=== PATIENT | male | born 1935 | race Caucasian/White ===

== ENCOUNTER 2016-04-29 19:07 | Emergency (ER) | payer OTHER, MEDICARE ==
[~2016-04-29] VITALS: Ht 165.1 cm; Wt 74.8 kg
[~2016-04-29 19:07] MED LIST: ASPIR 8181 MG PO; AVODART0.5 MG PO; HUMALOG 75/2100 U/ML; HYZAAR 25 MG-101 TAB PO; LYRICA100 MG PO; LYRICA200 MG PO; LYRICA50 MG PO; METFORMIN HCL500 MG PO; NORVASC 5MG TAB5 MG PO; OYSTER SHELL C500 M1 PO; PENTOXIFYL XR400 MG PO; PROTONIX 40MG T40 MG PO; SIMVASTATIN40 MG PO; TRICOR145 MG PO; VITAMIN B12500 MCG PO; VITAMIN D32000 I1 PO
[2016-04-29 19:23] VITALS: BP 167/75
[2016-04-29] MEDS ORDERED: METFORMIN HCL500 M3 PO (19:55)
[2016-04-29] MEDS ORDERED: SIMVASTATIN40 M1 PO (19:56)
[2016-04-29] MEDS ORDERED: VIMPAT100 M1 PO (19:56)
[2016-04-29] MEDS ORDERED: FINASTERIDE5 M1 PO (19:57)
[2016-04-29] MEDS ORDERED: FENOFIBRATE145 M1 PO (19:57)
[2016-04-29] MEDS ORDERED: CALCIUM 500 +1 EAC5 PO (19:57)
--- NOTE | 2016-04-29 19:57 | RADIOLOGY REPORT ---
EXAMINATION: XR FOOT, RIGHT CLINICAL INFORMATION: Right foot pain following injury. COMPARISON: None TECHNIQUE: AP and lateral views of the right foot. FINDINGS: No acute fractures are identified. There are degenerative or postoperative changes within the hindfoot. There is scattered vascular calcification. IMPRESSION: No evidence for acute injury to the right foot. Degenerative or postoperative changes within the hindfoot.
[2016-04-29] MEDS ORDERED: GABAPENTIN300 M2 PO (19:58)
[2016-04-29] MEDS ORDERED: ASPIRIN EC81 M1 PO (19:59)
[2016-04-29] MEDS ORDERED: FISH OIL 1,0001 EAC3 PO (19:59)
[2016-04-29] MEDS ORDERED: LOSARTAN-HCTZ1 EAC2 PO (19:59)
[2016-04-29] MEDS ORDERED: LEVEMIR FL100 UNIT/1 SC (20:00)
--- NOTE | 2016-04-29 20:00 | ED ANKLE/FOOT INJURY COMPLAINT ---
History of Present Illness General Chief Complaint: Foot or Ankle Injury Stated Complaint: FALL LAST SUNDAY, R FOOT PAIN PER PT Source: patient Exam Limitations: no limitations Vital Signs & Intake/Output Vital Signs & Intake/Output Vital Signs Date Time Temp Pulse Resp B/P Pulse O2 O2 Flow FiO2 Ox Delivery Rate 04/29 1922 97.5 71 18 167/75 98 Room Air Allergies Coded Allergies: NO KNOWN ALLERGIES (04/21/14) Reconcile Medications Aspirin (Ecotrin*) 81 MG TABLET.DR 1 TAB PO DAILY HEART/BLOOD (Reported) Calcium Carbonate/Vitamin D3 (Calcium 500 + D Tablet) 500 MG-400 TABLET 1 TAB PO QAM SUPPLEMENT (Reported) Doxycycline Hyclate 100 MG TABLET 1 TAB PO BID cellulitis Fenofibrate Nanocrystallized (Fenofibrate) 145 MG TABLET 1 TAB PO DAILY CHOLESTEROL/TRIGLYCERIDES (Reported) Finasteride 5 MG TABLET 1 TAB PO QPM PROSTATE (Reported) Gabapentin 300 MG CAPSULE 1 CAP PO QPM UNKNOWN (Reported) Insulin Detemir (Levemir Flextouch) 100 UNIT/ML (3 ML) INSULN.PEN 12 UNITS SC QPM DM (Reported) Lacosamide (Vimpat) 100 MG TABLET 1 TAB PO BID SEIZURES (Reported) Losartan/Hydrochlorothiazide (Losartan-Hctz 100-25 MG Tab) 100 MG-25 MG TABLET 1 TAB PO QPM BP (Reported) Metformin HCl 500 MG TABLET 1 TAB PO BID DM (Reported) [place]-3/Dha/Epa/Fish Oil (Fish Oil 1,000 MG Softgel) 250 MG-500 MG-1,000 MG CAPSULE 1 CAP PO BID SUPPLEMENT (Reported) Simvastatin (Simvastatin*) 40 MG TABLET 1 TAB PO QPM CHOLESTEROL (Reported) Triage Note: PT TO TRIAGE WITH C/O R FOOT PAIN S/P LOST BALLANCE AND FALL A WEEK AGO. DENIES LOC, DENIES HEADSTRIKE. VSS. PT REFUSED PAIN MEDS IN TRIAGE. Triage Nurses Notes Reviewed? yes Occurred: last week Duration: week(s): (1) Timing: recent history Severity: moderate, severe Pain/Injury Location: Right: Foot. No Modifying Factors: none HPI: 80-year-old male comes into emergency room for further evaluation of right foot pain. Patients pain has been going on for the past week. Patient reports that last week he fell and hit it. Denies any injury anywhere else on his body. Patient reports is been some mild redness and an open wound to the right foot. Denies any injury or trauma anywhere else on his body. Denies any other associated symptoms. (LAUREEN BROOKS) Past History Travel History Traveled to [place] past 21 day No Medical History Any Pertinent Medical History? 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 No (LAUREEN BROOKS) Review of Systems Review of Systems Constitutional: Reports: no symptoms. EENTM: Reports: no symptoms. Respiratory: Reports: no symptoms. Cardiovascular: Reports: no symptoms. GI: Reports: no symptoms. Genitourinary: Reports: no symptoms. Musculoskeletal: Reports: see HPI. Skin: Reports: see HPI. Neurological/Psychological: Reports: no symptoms. Hematologic/Endocrine: Reports: no symptoms. Immunologic/Allergic: Reports: no symptoms. All Other Systems: Reviewed and Negative (LAUREEN BROOKS) Physical Exam Physical Exam General Appearance: well developed/nourished, mild distress Head: atraumatic Eyes: Bilateral: normal appearance. Ears, Nose, Throat: normal ENT inspection, hearing grossly normal Neck: normal inspection Cardiovascular/Respiratory: no respiratory distress Back: normal inspection Leg/Knee/Thigh Left: normal range of motion Leg/Knee/Thigh Right: normal range of motion Ankle Right: normal inspection Foot Right: swelling, erythema, small open wound, Neuro/Vascular: normal motor function, normal sensation, dorsalis pedis 2+ Tendon: normal tendon function Psychiatric: awake, alert, oriented x 3 Skin: intact, normal color, warm/dry (LAUREEN BROOKS) Progress Differential Diagnosis: arterial insufficiency, cellulitis, septic arthritis, fracture, dislocation, sprain, contusion, compartmental syndrome Plan of Care: Current Medications Sig/Deangelo Start time Last Medication Dose Stop Time Status Admin Doxycycline Hyclate 100 MG ONCE ONE 04/29 2014 UNVr (Vibramycin) 04/30 2015 Diagnostic Imaging: Viewed by Me: Radiology Read. Discussed w/RAD: Radiology Read. Radiology Impression: SERVICE DATE: 04/29/16 EXAM TYPE: RAD - XRY-FOOT TWO VIEWS RIGHT EXAMINATION: XR FOOT, RIGHT CLINICAL INFORMATION: Right foot pain following injury. COMPARISON: None TECHNIQUE: AP and lateral views of the right foot. FINDINGS: No acute fractures are identified. There are degenerative or postoperative changes within the hindfoot. There is scattered vascular calcification. IMPRESSION: No evidence for acute injury to the right foot. Degenerative or postoperative changes within the hindfoot. DICTATED BY: JERMAN CALDWELL MD DATE/TIME DICTATED:04/29/161950 TRANSPORTATION PLANNER:TRACY DATE/ TIME TRANSCRIBED:04/29/161950 (ASHLEY PERALTA,LAUREEN) Departure Departure Disposition: HOME OR SELF CARE Condition: Stable Clinical Impression Primary Impression: Cellulitis of right foot Referrals: CHRISTIANO SCHMITZ,CONNIE MARTINEZ MD,YVES Riley (PCP/Family) Additional Instructions: Take doxycycline as prescribed. Follow-up with Dr. Schwartz. Return if any concerns worsening symptoms. Follow-up with your primary care physician this week. Return to the emergency room at any time sooner if you have worsening of your symptoms or any other concerns. Please note that there might be incidental findings in your evaluation that are unrelated to the current emergency department visit. Please notify your primary care doctor about this emergency department visit in order to obtain and review all of the testing performed so that these incidental findings can be monitored as needed. If you were prescribed a narcotic use caution as this medication is highly addictive and will make you drowsy use for breakthrough pain only. No driving, drinking alcohol or operating [employer] when taking. If you had an x-ray performed, please understand that some fractures may not be seen on the initial set of x-rays. If your symptoms persist you might need a repeat set of x-rays to check for such a fracture. If you had a laceration evaluated, please understand that foreign bodies such as glass or wood may not be visible to the naked eye or on plain x-rays. If the wound becomes red, swollen, increasingly more painful or if there is any drainage from the wound, please have it reevaluated by a physician for the possibility of a retained foreign body. Departure Forms: Customer Survey General Discharge Information Prescriptions: Current Visit Scripts Doxycycline Hyclate 1 TAB PO BID #20 TAB (LAUREEN BROOKS) PA/HEATING UNIT MECHANIC Co-Sign Statement Statement: ED Attending supervision documentation- [X] I saw and evaluated the patient. I have also reviewed all the pertinent lab results and diagnostic results. I agree with the findings and the plan of care as documented in the PA's/HEATING UNIT MECHANIC's documentation. [] I have reviewed the ED Record and agree with the PA's/HEATING UNIT MECHANIC's documentation. [] Additions or exceptions (if any) to the PAs/HEATING UNIT MECHANIC's note and plan are summarized below: [] (LA VIERA DO)
[2016-04-29] MEDS ORDERED: DOXYCYCLINE HY100 M4 PO (20:03)
[2016-04-30] MEDS ORDERED: DOXYCYCLINE HY100 M2 PO (10:44)
== END 2016-04-29 20:23 ==
LOC: ERH 19:07
DX: L03.115 Cellulitis of right lower limb (principal)
CPT/HCPCS: 73620-RT

== ENCOUNTER 2016-06-05 05:41 | Emergency (ER) | payer OTHER, MEDICARE ==
[~2016-06-05 05:41] MED LIST changes: +ASPIRIN EC81 M1 PO; +CALCIUM 500 +1 EAC5 PO; +DOXYCYCLINE HY100 M2 PO; +DOXYCYCLINE HY100 M4 PO; +FENOFIBRATE145 M1 PO; +FINASTERIDE5 M1 PO; +FISH OIL 1,0001 EAC3 PO; +GABAPENTIN300 M2 PO; +LEVEMIR FL100 UNIT/1 SC; +LOSARTAN-HCTZ1 EAC2 PO; +METFORMIN HCL500 M3 PO; +SIMVASTATIN40 M1 PO; +VIMPAT100 M1 PO
--- NOTE | 2016-06-05 05:43 | ED AMS/SEIZURE/WEAK/DIZZY ---
History of Present Illness General Chief Complaint: Seizure Stated Complaint: BIBA SEIZURE Source: old records, EMS Exam Limitations: clinical condition Vital Signs & Intake/Output Vital Signs & Intake/Output Vital Signs Date Time Temp Pulse Resp B/P B/P Pulse O2 O2 Flow FiO2 Mean Ox Delivery Rate 06/05 1050 96.0 64 20 170/75 95 Room Air 06/05 0916 97.0 67 18 158/75 96 Room Air 06/05 0844 72 20 169/80 96 Room Air 06/05 0718 97.0 78 20 180/80 94 Room Air 06/05 0602 96.5 77 16 165/73 95 Allergies Coded Allergies: NO KNOWN ALLERGIES (04/21/14) Reconcile Medications Aspirin (Ecotrin*) 81 MG TABLET.DR 1 TAB PO DAILY HEART/BLOOD (Reported) Calcium Carbonate/Vitamin D3 (Calcium 500 + D Tablet) 500 MG-400 TABLET 1 TAB PO QAM SUPPLEMENT (Reported) Fenofibrate Nanocrystallized (Fenofibrate) 145 MG TABLET 1 TAB PO DAILY CHOLESTEROL/TRIGLYCERIDES (Reported) Finasteride 5 MG TABLET 1 TAB PO QPM PROSTATE (Reported) Gabapentin 300 MG CAPSULE 1 CAP PO QPM UNKNOWN (Reported) Insulin Detemir (Levemir Flextouch) 100 UNIT/ML (3 ML) INSULN.PEN 12 UNITS SC QPM DM (Reported) Lacosamide (Vimpat) 100 MG TABLET 1 TAB PO BID SEIZURES (Reported) Lacosamide (Vimpat) 100 MG TABLET 1 TAB PO BID seizure disorder Losartan/Hydrochlorothiazide (Losartan-Hctz 100-25 MG Tab) 100 MG-25 MG TABLET 1 TAB PO QPM BP (Reported) Metformin HCl 500 MG TABLET 1 TAB PO BID DM (Reported) [place]-3/Dha/Epa/Fish Oil (Fish Oil 1,000 MG Softgel) 250 MG-500 MG-1,000 MG CAPSULE 1 CAP PO BID SUPPLEMENT (Reported) Simvastatin (Simvastatin*) 40 MG TABLET 1 TAB PO QPM CHOLESTEROL (Reported) Triage Nurses Notes Reviewed? yes Onset: Abrupt Duration: RESOLVING... UNKNOWN TIME OF ONSET Timing: single episode today Injury Environment: home Severity: moderate, severe Modifying Factors: Improves With: rest. Associated Symptoms: GRAND MAL TONIC CLONIC SEIZURES. HPI: 80 yo gentleman h/o seizure disorder, diabetes, presents with sudden onset of grand mal tonic clonic seizures that lasted approximately 8-10 minutes. Per his , "He gets little ones often... but this was a big one and it just wouldn't stop." She denies drug use, alcohol use, fever, chills, headache, chest pain. She notes that, "We tried to get a refill of the Vimpat... The pharmacy didn't have the right number... I called the neurologist and he never called me back.... I woke up and found him seizing.... I called 911." The medics arrived and found him actively seizing, which self resolved. He then became agitated and disoriented. They report no sign of trauma. (GREGORIO PAUL,AGAPITO Aguilera) Past History Travel History Traveled to [place] past 21 day No Medical History Any Pertinent Medical History? 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 No (GREGORIO PAUL,AGAPITO Aguilera) Review of Systems Review of Systems Constitutional: Reports: no symptoms. EENTM: Reports: no symptoms. Respiratory: Reports: no symptoms. Cardiovascular: Reports: no symptoms. GI: Reports: no symptoms. Genitourinary: Reports: no symptoms. Musculoskeletal: Reports: no symptoms. Skin: Reports: no symptoms. Neurological/Psychological: Reports: no symptoms. Hematologic/Endocrine: Reports: no symptoms. Immunologic/Allergic: Reports: no symptoms. All Other Systems: Reviewed and Negative (GREGORIO PAUL,AGAPITO Aguilera) Physical Exam Physical Exam General Appearance: well developed/nourished, mild distress Head: atraumatic, normal appearance Eyes: Bilateral: normal appearance, PERRL, EOMI. Ears, Nose, Throat: normal pharynx, normal ENT inspection, small amount of blood on tongue, no significant laceration visualized. Neck: normal inspection, supple, full range of motion Respiratory: normal breath sounds, chest non-tender, no respiratory distress, quiet respiration, lungs clear Cardiovascular: regular rate/rhythm Gastrointestinal: normal bowel sounds, soft, non-tender, no organomegaly Back: normal inspection Extremities: normal range of motion Neurologic/Psych: no motor/sensory deficits, awake, alert, pt knows name, but not place, date... pt alert, but confused. Reflexes: 1+: bicep (R), bicep (L), knee (R), knee (L). Skin: intact, normal color, warm/dry Core Measures ACS in differential dx? No CVA/TIA Diagnosis: No Severe Sepsis Present: No Septic Shock Present: No (GREGORIO PAUL,AGAPITO Aguilera) Progress Differential Diagnosis: alcohol intoxication, dehydration, electrolyte imbalance , seizure disorder Plan of Care: Orders Procedure Date/time Status Add-on Test (ER Only) 06/05 626 Active URINE DRUG SCREEN FOR ER ONLY 06/05 626 Complete URINALYSIS 06/05 626 Complete ETHANOL 06/05 06 Complete TROPONIN LEVEL 06/05 542 Complete PARTIAL THROMBOPLASTIN TIME 06/05 542 Complete PROTHROMBIN TIME 06/05 05 Complete PROLACTIN 06/05 542 Complete COMPREHENSIVE METABOLIC PANEL 06/05 542 Complete CBC WITHOUT DIFFERENTIAL 06/05 542 Complete EKG 06/05 542 Active Laboratory Tests 06/05/16 1009: Urine Opiates Screen < 100.00, Methadone Screen < 40, Barbiturate Screen < 60, Ur Phencyclidine Scrn < 6.00, Amphetamines Screen < 100, U Benzodiazepines Scrn < 85, Urine Cocaine Screen < 50, Urine Cannabis Screen < 5.00, Urine Color YEL, Urine Clarity CLEAR, Urine pH 6.0, Ur Specific [place] 1.025, Urine Protein 100 H, Urine Ketones NEG, Urine Nitrite NEG, Urine Bilirubin NEG, Urine Urobilinogen 0.2, Ur Leukocyte Esterase NEG, Ur Microscopic SEDIMENT EXAMINED, Urine RBC RARE , Urine WBC RARE, Urine Mucus RARE, Urine Hemoglobin TRACE-INTACT H, Urine Glucose 100 H 06/05/16 0610: Anion Gap 14, Estimated GFR 59 L, BUN/Creatinine Ratio 18.3, Glucose 220 H, Calcium 9.7, Total Bilirubin 0.7, AST 25, ALT 38, Alkaline Phosphatase 45, Troponin I < 0.01, Total Protein 6.5, Albumin 3.8, Globulin 2.7, Albumin/ Globulin Ratio 1.4, Prolactin 61.9 H, PT 12.1, INR 1.15, APTT 29, CBC w Diff NO MAN DIFF REQ, RBC 4.21 L, MCV 82.6, MCH 27.2, RDW 18.5 H, MPV 8.1, Gran % 66.6 , Lymphocytes % 18.7 L, Monocytes % 7.2, Eosinophils % 7.0 H, Basophils % 0.5, Absolute Granulocytes 2.0, Absolute Lymphocytes 0.6 L, Absolute Monocytes 0.2, Absolute Eosinophils 0.2, Absolute Basophils 0, PUBS MCHC 32.9 L, Serum Alcohol < 10.0 Diagnostic Imaging: Viewed by Me: Radiology Read, CT Scan. Discussed w/RAD: Radiology Read, CT Scan. Radiology Impression: head ct... no acute disease. CXR Impression: right basilar region ... atelectasis vs infiltrate. Initial ED EKG: normal axis, normal intervals, normal p-waves, normal QRS complex, normal sinus rhythm, q waves iii, F... no change from prior. Prior EKG: unchanged Hand-Off Endorsed To: LA VIERA DO Endorsed Time: 0700 Pending: other Comments: PATIENT: ELMER RUIZ PRESENT AGE: 80 PATIENT ACCOUNT NO: [id number] : 37 LOCATION: [facility] ORDERING PHYSICIAN: AGAPITO BARKER MD SERVICE DATE: 06/05/16 EXAM TYPE: RAD - XRY-PORTABLE CHEST XRAY EXAMINATION: XR PORTABLE CHEST CLINICAL INFORMATION: Abnormal respiration COMPARISON: 03/29/2016 TECHNIQUE: Portable AP view of the chest was obtained. FINDINGS: The lungs are well expanded. Increased patchy right basilar opacity. The left lung is clear. No pneumothorax. The cardiomediastinal silhouette is unchanged. Radiopaque density overlies the left upper quadrant. IMPRESSION: Increased right basilar opacity could represent atelectasis or pneumonia. DICTATED BY: CHRISTEN MONTANEZ MD DATE/TIME DICTATED:06/05/16608 SMT OPERATOR:TRACY DATE/TIME TRANSCRIBED:06/05/16608 CONFIDENTIAL, DO NOT COPY WITHOUT APPROPRIATE AUTHORIZATION. <Electronically signed in Other Vendor System> SIGNED BY: CHRISTEN MONTANEZ MD 06/05 PATIENT: ELMER RUIZ PRESENT AGE: 80 PATIENT ACCOUNT NO: [id number] : 37 LOCATION: [facility] ORDERING PHYSICIAN: AGAPITO BARKER MD SERVICE DATE: 06/05/16 EXAM TYPE: CAT - CT HEAD WO IV CONTRAST EXAMINATION: CT HEAD WITHOUT CONTRAST CLINICAL INFORMATION: Seizure. Prolonged postictal phase. COMPARISON: 04/21/2014 TECHNIQUE: Contiguous axial imaging was performed from the skull base to vertex without intravenous contrast. DLP: 901 mGy-cm. FINDINGS: There is no evidence of acute intracranial hemorrhage or territorial infarction. No abnormal mass effect or midline shift is seen. Moon to white matter differentiation is well preserved. No extra-axial fluid collections are identified. No hydrocephalus. Proportional prominence of the ventricles and sulcal spaces is consistent with mild volume loss. There is no abnormal attenuation within the brain parenchyma. The osseous structures and soft tissues are normal. The mastoid air cells and visualized portions of the paranasal sinuses are well aerated. IMPRESSION: No acute intracranial pathology. DICTATED BY: CHRISTEN MONTANEZ MD DATE/TIME DICTATED:06/05/16606 SMT OPERATOR:TRACY DATE/TIME TRANSCRIBED:06/05/16606 CONFIDENTIAL, DO NOT COPY WITHOUT APPROPRIATE AUTHORIZATION. <Electronically signed in Other Vendor System> SIGNED BY: CHRISTEN MONTANEZ MD 06/0513 (GREGORIO PAUL,AGAPITO Aguilera) Departure Departure Disposition: STILL A PATIENT Condition: Stable Clinical Impression Primary Impression: Seizure disorder Referrals: MICHELLE PAUL,YVES Riley (PCP/Family) Departure Forms: Customer Survey General Discharge Information Prescriptions: Current Visit Scripts Lacosamide (Vimpat) 1 TAB PO BID #60 TAB Ref 1 Comments 06/05/16, 6:56... discussed with and family member at length... pt resting comfortably after ativan... awaiting lab results. 06/05/16, 7am... pt signed out to dr. viera. (GREGORIO PAUL,AGAPITO Aguilera) Departure Comments 06/05/16 8:13 am The patient was signed out to me by Dr. Barker at 7 AM. He is been sleeping from the Ativan. He does wake up and converse with me. He has a small superficial laceration to the right side of his tongue. He was unable to take a loading dose of Vimpat as he was too sleepy. This has been ordered. Assuming he can ambulate without difficulty he will be discharged. 06/05/16 11 AM The patient is awake alert oriented 3. He was ambulated by nursing. He has no respiratory symptoms. I will empirically treat him with Augmentin. He will take the Vimpat as directed Follow-up with his doctor this week. (LA VIERA DO)
--- NOTE | 2016-06-05 06:13 | CT SCAN REPORT ---
EXAMINATION: CT HEAD WITHOUT CONTRAST CLINICAL INFORMATION: Seizure. Prolonged postictal phase. COMPARISON: 04/21/2014 TECHNIQUE: Contiguous axial imaging was performed from the skull base to vertex without intravenous contrast. DLP: 901 mGy-cm. FINDINGS: There is no evidence of acute intracranial hemorrhage or territorial infarction. No abnormal mass effect or midline shift is seen. Moon to white matter differentiation is well preserved. No extra-axial fluid collections are identified. No hydrocephalus. Proportional prominence of the ventricles and sulcal spaces is consistent with mild volume loss. There is no abnormal attenuation within the brain parenchyma. The osseous structures and soft tissues are normal. The mastoid air cells and visualized portions of the paranasal sinuses are well aerated. IMPRESSION: No acute intracranial pathology.
--- NOTE | 2016-06-05 06:13 | RADIOLOGY REPORT ---
EXAMINATION: XR PORTABLE CHEST CLINICAL INFORMATION: Abnormal respiration COMPARISON: 03/29/2016 TECHNIQUE: Portable AP view of the chest was obtained. FINDINGS: The lungs are well expanded. Increased patchy right basilar opacity. The left lung is clear. No pneumothorax. The cardiomediastinal silhouette is unchanged. Radiopaque density overlies the left upper quadrant. IMPRESSION: Increased right basilar opacity could represent atelectasis or pneumonia.
[2016-06-05 06:25] LABS: ABSOLUTE BASOPHIL COUNT 0 /CUMM (0.0-0.2); ABSOLUTE EOSINOPHIL COUNT 0.2 /CUMM (0.0-0.7); ABSOLUTE LYMPH COUNT 0.6 /CUMM (1.2-3.4); ABSOLUTE MONOCYTE COUNT 0.2 /CUMM (0.10-0.60); BASOPHIL % 0.5 % (0.0-2.0); GRANULOCYTE % 66.6 % (42.2-75.2); HEMATOCRIT 34.8 % (42-52); MEAN CORPUSCULAR HGB 27.2 PG (27.0-31.0); MEAN CORPUSCULAR HGB CONC 32.9 G/DL (33.0-37.0); MEAN CORPUSCULAR VOLUME 82.6 FL (80.0-94.0); MEAN PLATELET VOLUME 8.1 FL (7.4-10.4); PLATELET COUNT 123 /CUMM (130-400); RBC DISTRIBUTION WIDTH 18.5 % (11.5-14.5); RED BLOOD CELL CT 4.21 /CUMM (4.70-6.10)
[2016-06-05 06:32] LABS: PT 12.1 SEC (9.4-12.5); PTT 29 SEC (25-37)
[2016-06-05] MEDS ORDERED: VIMPAT100 M1 PO (06:37)
[2016-06-05 10:50] VITALS: BP 170/75
[2016-06-05] MEDS ORDERED: AUGMENTIN 500-1 EACH PO (11:10)
== END 2016-06-05 11:27 ==
LOC: ERH 05:41
PROVIDERS: Pediatrics
DX: G40.909 Epilepsy, unspecified, not intractable, without status epilepticus (principal); I10 Essential (primary) hypertension; E11.9 Type 2 diabetes mellitus without complications; Z79.84 Long term (current) use of oral hypoglycemic drugs
CPT/HCPCS: 80307; 81001; 93005; 93010; 96374; G0480

== ENCOUNTER 2017-06-13 07:54 | Emergency (ER) | payer OTHER, MEDICARE ==
[~2017-06-13] VITALS: Ht 165.1 cm; Wt 70.3 kg
[~2017-06-13 07:54] MED LIST changes: +AUGMENTIN 500-1 EACH PO
[2017-06-13 08:03] VITALS: BP 143/85
--- NOTE | 2017-06-13 08:09 | ED GENERAL ADULT ---
History of Present Illness General Chief Complaint: General Adult Stated Complaint: PT TOOK WRONG INSULIN THIS MORNING BY ACCIDENT Source: patient, family, old records Exam Limitations: no limitations Vital Signs & Intake/Output Vital Signs & Intake/Output Vital Signs Date Time Temp Pulse Resp B/P B/P Pulse O2 O2 Flow FiO2 Mean Ox Delivery Rate 06/13 0803 97.4 81 18 143/85 98 Room Air Allergies Coded Allergies: NO KNOWN ALLERGIES (04/21/14) Reconcile Medications Aspirin (Ecotrin*) 81 MG TABLET.DR 1 TAB PO DAILY HEART/BLOOD (Reported) Augmentin (Augmentin 500-125 Tablet) 500 MG-125 MG TABLET 1 TAB PO BID ASPIRATION Calcium Carbonate/Vitamin D3 (Calcium 500 + D Tablet) 500 MG-400 TABLET 1 TAB PO QAM SUPPLEMENT (Reported) Fenofibrate Nanocrystallized (Fenofibrate) 145 MG TABLET 1 TAB PO DAILY CHOLESTEROL/TRIGLYCERIDES (Reported) Finasteride 5 MG TABLET 1 TAB PO QPM PROSTATE (Reported) Gabapentin 300 MG CAPSULE 1 CAP PO QPM UNKNOWN (Reported) Insulin Detemir (Levemir Flextouch) 100 UNIT/ML (3 ML) INSULN.PEN 12 UNITS SC QPM DM (Reported) Lacosamide (Vimpat) 100 MG TABLET 1 TAB PO BID SEIZURES (Reported) Lacosamide (Vimpat) 100 MG TABLET 1 TAB PO BID seizure disorder Losartan/Hydrochlorothiazide (Losartan-Hctz 100-25 MG Tab) 100 MG-25 MG TABLET 1 TAB PO QPM BP (Reported) Metformin HCl 500 MG TABLET 1 TAB PO BID DM (Reported) [place]-3/Dha/Epa/Fish Oil (Fish Oil 1,000 MG Softgel) 250 MG-500 MG-1,000 MG CAPSULE 1 CAP PO BID SUPPLEMENT (Reported) Simvastatin (Simvastatin*) 40 MG TABLET 1 TAB PO QPM CHOLESTEROL (Reported) Triage Note: PT FROM HOME C/O "MEDICATED WITH WRONG INSULIN" PER PT. PT STATES THIS MORNING BSG 266, PT THEN MEDICATED WITH 30 UNITS OF HUMALOG INSTEAD OF 6 UNITS. PT WAS SUPPOSE TO TAKE 30 UNITS OF LEVEMIR AND HE MEDICATED WITH 5 UNITS. PTS INTAKE SINCE THEN WAS 1 MALAYSIAN MUFFIN 3-4 MINI CANDIES AND 1 GLASS OF MILK. PTS VSS. Triage Nurses Notes Reviewed? yes Onset: Abrupt Duration: hour(s): Timing: single episode today Injury Environment: home Severity: mild Severity Numbers: 1 No Modifying Factors: none Associated Symptoms: denies HPI: 81-year-old male with history of seizure disorder diabetes hypertension presents to ER after he states he accidentally switched his insulin medications this morning. He took 30 units of his fast acting Humalog instead of his normal 6 sliding scale after eating an [place]i muffin for breakfast and only took 5 units of his Levemir. This is never happened before. The patient had a piece of candy afterwards on arrival his sugars 312. He offers no complaints no dizziness, lightheadedness, lethargy. No chest pain shortness of breath nausea vomiting He took his insulin around 7am (Ricardo Whitman) Past History Travel History Traveled to [place] past 21 day No Medical History Any Pertinent Medical History? 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 No (Ricardo Whitman) Review of Systems Review of Systems Constitutional: Reports: see HPI. Comments Review of systems: See HPI, All other systems negative. Constitutional, no chills no fever, HEENT: no sore throat no congestion Cardiovascular: No chest pain Skin: no rashes, no change in skin Respiratory: No dyspnea no cough gi: no nausea, no vomiting Muscle skeletal: No joint pain, no back pain Neurologic: , no headache Heme/endocrine: No bruising (Ricardo Whitman) Physical Exam Physical Exam General Appearance: well developed/nourished, no apparent distress Comments: Well-developed well-nourished patient in no apparent distress. HEENT: Atraumatic, extraocular motion intact Neck: Supple, FROM Back: FROM Cardiovascular: Regular rate and rhythms Respiratory: No respiratory distress. Patient speaking in full complete sentences Extremities: full range of motion Neuro: awake, alert, and oriented to person, place and time. There were no obvious focal neurologic abnormalities. Skin: Warm & dry;No appreciable rash on exposed skin Psych: Mood affect normal, normal memory normal judgment. Core Measures ACS in differential dx? No CVA/TIA Diagnosis: No Sepsis Present: No Sepsis Focused Exam Completed? No (Ricardo Whitman) Progress Differential Diagnoses I considered the following diagnoses in my evaluation of the patient: [ Hypoglycemia adverse medication reaction Initial ED EKG: none (Ricardo Whitman) Plan of Care: Orders Procedure Date/time Status FingerStick- Glucose 06/13 0805 Active Patient has no complaints at this time case discussed with Dr. Chiang who agrees with plan we will continue to watch the patient monitored him and observe for signs of hypoglycemia change in mental status lethargy patient is declining anything to eat or drink at this time Patient seen and evaluated by Dr. Chiang repeat blood sugar 247 patient resting in no acute distress at this time discussed with the plan of care need for medication safety return precautions were discussed at length I answered all his questions. (Ricardo Whitman) (Mariia PAUL,Serg Nguyen) Departure Departure Disposition: HOME OR SELF CARE Condition: Stable Clinical Impression Primary Impression: Medication administered in error Referrals: Reji Orozco MD (PCP/Family) Additional Instructions: Be careful and ensure you are taking your medication as prescribed. Follow up with your pmd, Begin your evening dose of insulin as directed. Return with any concerns. Departure Forms: Customer Survey General Discharge Information (Ricardo Whitman) PA/ASSISTANT SPA DIRECTOR Co-Sign Statement Statement: ED Attending supervision documentation- [X] I saw and evaluated the patient. I have also reviewed all the pertinent lab results and diagnostic results. I agree with the findings and the plan of care as documented in the PA's/ASSISTANT SPA DIRECTOR's documentation. Patient presents for evaluation of mistakenly switching his Lantus and regular insulin dose this morning. Physical examination reveals a comfortable appearing gentleman with good color and no diaphoresis. [] I have reviewed the ED Record and agree with the PA's/ASSISTANT SPA DIRECTOR's documentation. [] Additions or exceptions (if any) to the PAs/ASSISTANT SPA DIRECTOR's note and plan are summarized below: [] (Mariia PAUL,Serg Nguyen) Critical Care Note Critical Care Note Critical Care Time: non-applicable (Ricardo Whitman)
== END 2017-06-13 08:52 ==
LOC: ERH 07:54
DX: T38.3X1A Poisoning by insulin and oral hypoglycemic [antidiabetic] drugs, accidental (unintentional), initial encounter (principal)

== ENCOUNTER 2017-07-01 13:09 | Inpatient (IN) | payer OTHER, MEDICARE ==
[~2017-07-01] VITALS: Ht 165.1 cm; Wt 72.2 kg
--- NOTE | 2017-07-01 13:48 | ED GI/GU/ABDOMINAL COMPLAINT ---
History of Present Illness General Chief Complaint: Abdominal Pain/Flank Pain Stated Complaint: ABD PAIN, +N Source: patient, family, old records Exam Limitations: no limitations Vital Signs & Intake/Output Vital Signs & Intake/Output Vital Signs Date Time Temp Pulse Resp B/P B/P Pulse O2 O2 Flow FiO2 Mean Ox Delivery Rate 07/01 1757 98.7 77 18 126/71 96 Room Air 07/01 1421 Room Air 07/01 1323 96.9 70 18 170/77 98 Room Air Allergies Coded Allergies: NO KNOWN ALLERGIES (04/21/14) Reconcile Medications Aspirin (Ecotrin*) 81 MG TABLET.DR 1 TAB PO DAILY HEART/BLOOD (Reported) Calcium Carbonate/Vitamin D3 (Calcium 500 + D Tablet) 500 MG-400 TABLET 1 TAB PO QAM SUPPLEMENT (Reported) Fenofibrate Nanocrystallized (Fenofibrate) 145 MG TABLET 1 TAB PO DAILY CHOLESTEROL/TRIGLYCERIDES (Reported) Finasteride 5 MG TABLET 1 TAB PO QPM PROSTATE (Reported) Gabapentin 300 MG CAPSULE 1 CAP PO QPM NERVE PAIN (Reported) Insulin Detemir (Levemir Flextouch) 100 UNIT/ML (3 ML) INSULN.PEN 30 UNITS SC QAM DM (Reported) Insulin Lispro (Humalog Kwikpen U-100) (Unknown Strength) INSULN.PEN (Unknown Dose) SC TIDAC/HS DM (Reported) Lacosamide (Vimpat) 100 MG TABLET 1 TAB PO BID seizure disorder Losartan/Hydrochlorothiazide (Losartan-Hctz 100-25 MG Tab) 100 MG-25 MG TABLET 1 TAB PO QPM BP (Reported) Metformin HCl 500 MG TABLET 1 TAB PO BID DM (Reported) [place]-3/Dha/Epa/Fish Oil (Fish Oil 1,000 MG Softgel) 250 MG-500 MG-1,000 MG CAPSULE 1 CAP PO BID SUPPLEMENT (Reported) Sennosides (Senna) 8.6 MG TABLET 1 TAB PO DAILY GI (Reported) Simvastatin (Simvastatin*) 40 MG TABLET 1 TAB PO QPM CHOLESTEROL (Reported) Triage Note: C/O SUDDEN ONSET OF MID-ABDOMINAL PAIN WITH NAUSEA X 30 MINUTES, OCCURRED AFTER EATING PIZZA AND SAUSAGES. DENIES SOB OR DIZZINESS. EKG DONE. COLOR PALE. Triage Nurses Notes Reviewed? yes HPI: Patient presents with a gradual onset of epigastric abdominal pain. The pain started very shortly after eating some leftover sausage pizza. His states that she had intended to throw it out because they had lost power. Positive nausea and dry heaving. No diarrhea. Patient denies any chest pain or shortness of breath. The pain is squeezing in nature. There are no aggravating or mitigating factors. He rates the pain at 8 out of 10. There is no radiation of the pain. Past History Travel History Traveled to [place] past 21 day No Medical History Any Pertinent Medical History? 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 No Review of Systems Review of Systems Constitutional: Reports: no symptoms. EENTM: Reports: no symptoms. Respiratory: Reports: no symptoms. Cardiovascular: Reports: no symptoms. GI: Reports: see HPI, abdominal pain, nausea. Genitourinary: Reports: no symptoms. Musculoskeletal: Reports: no symptoms. Skin: Reports: no symptoms. Neurological/Psychological: Reports: no symptoms. Hematologic/Endocrine: Reports: no symptoms. Immunologic/Allergic: Reports: no symptoms. All Other Systems: Reviewed and Negative Physical Exam Physical Exam General Appearance: well developed/nourished, alert, awake, anxious, moderate distress Head: atraumatic, normal appearance Eyes: Bilateral: PERRL, EOMI. Ears, Nose, Throat, Mouth: hearing grossly normal, DRY MUCOSA Neck: normal inspection, supple, full range of motion, normal alignment Respiratory: normal breath sounds, chest non-tender, no respiratory distress, lungs clear Cardiovascular: regular rate/rhythm, normal peripheral pulses Gastrointestinal: normal bowel sounds, soft, tenderness, NO GUARDING ORREBOUND Back: normal inspection, normal range of motion Extremities: normal range of motion Neurologic/Psych: no motor/sensory deficits, awake, alert, oriented x 3, normal mood/affect Core Measures ACS in differential dx? No Sepsis Present: No Sepsis Focused Exam Completed? No Progress Differential Diagnosis: AMI, biliary colic, cholecystitis, gastritis, hepatitis, ischemic bowel, inflamm bowel dis, peptic ulcer, PUD/GERD Plan of Care: Orders Procedure Date/time Status Nothing by Mouth 07/[address] in observation 07/01 1806 Active ED Holding Orders 07/01 1806 Active Code Status 07/01 180 Active TROPONIN LEVEL 07/01 1714 Active EKG 07/01 1714 Active Add-on Test (ER Only) 07/01 1348 Active URINALYSIS 07/01 1348 Active TROPONIN LEVEL 07/01 1339 Complete LIPASE 07/01 1339 Complete COMPREHENSIVE METABOLIC PANEL 07/01 1339 Complete CBC WITHOUT DIFFERENTIAL 07/01 1339 Complete ACETONE 07/01 1339 Complete EKG 07/01 1310 Active Current Medications Sig/Deangelo Start time Last Medication Dose Stop Time Status Admin Finasteride 5 MG QPM 07/01 2100 UNVr (Proscar) Gabapentin 300 MG QPM 07/01 2100 UNVr (Neurontin) Lacosamide 100 MG BID 07/01 2100 UNVr (Vimpat) Ampicillin Sodium/ 3,000 MG ONCE ONE 07/01 1745 AC 07/01 Sulbactam Sodium 07/01 181 174 (Unasyn) Sodium Chloride 100 ML (Normal Saline 0.9%) Laboratory Tests 07/01/17 1720: Troponin I Pending 07/01/17 1407: Anion Gap 13, Estimated GFR 42 L, BUN/Creatinine Ratio 23.8, Glucose 93, Calcium 9.7, Total Bilirubin 0.3, AST 29, ALT 29, Alkaline Phosphatase 47, Troponin I < 0.01, Total Protein 6.6, Albumin 4.1, Globulin 2.5, Albumin/ Globulin Ratio 1.6, Lipase 162, CBC w Diff NO MAN DIFF REQ, RBC 4.45 L, MCV 73.8 L, MCH 23.1 L, MCHC 31.3 L, RDW 18.7 H, MPV 9.1, Gran % 74.4, Lymphocytes % 15.6 L, Monocytes % 6.8, Eosinophils % 2.7, Basophils % 0.5, Absolute Granulocytes 3.7, Absolute Lymphocytes 0.8 L, Absolute Monocytes 0.3, Absolute Eosinophils 0.1, Absolute Basophils 0, Acetone Level NEGATIVE Diagnostic Imaging: Viewed by Me: CT Scan. Discussed w/RAD: CT Scan. Radiology Impression: PATIENT: ELMER RUIZ PRESENT AGE: 81 PATIENT ACCOUNT NO: [id number] : 37 LOCATION: [facility] ORDERING PHYSICIAN: Balwinder Armenta MD SERVICE DATE: 07/01/17-2012 EXAM TYPE: CAT - CT ABD & PELVIS W/O IV CONTRAS EXAMINATION: CT ABDOMEN AND PELVIS WITHOUT CONTRAST CLINICAL INFORMATION: Severe epigastric pain COMPARISON: Ultrasound 05/14/2017 TECHNIQUE: Multidetector volumetric imaging was performed from the superior aspect of the liver through the pubic symphysis. Sagittal and coronal reformatted images were obtained on the technologist's workstation. DLP: 382 mGy-cm FINDINGS: LUNG BASES: Bibasilar atelectasis LIVER, GALLBLADDER, AND BILIARY TREE: The liver is normal in size, shape, and attenuation. No focal hepatic lesion or biliary ductal dilatation is present. The gallbladder is distended. There are multiple gallstones layering within the neck of the gallbladder. There is a small amount of pericholecystic fluid. PANCREAS: Relative fatty atrophy of the pancreas. SPLEEN: The spleen measures up to 13 cm in length. ADRENAL GLANDS: Unremarkable. KIDNEYS AND URETERS: The kidneys are normal in size, shape, and attenuation. No hydronephrosis, hydroureter, or calculi seen. No perinephric stranding. BLADDER: Unremarkable. GASTROINTESTINAL TRACT: Stomach is mildly distended with food. There is an air-fluid level within the proximal duodenum. There may be some mild inflammatory changes in the region of the rupali hepatis. No dilated loops of small or large bowel. Moderate stool volume throughout the colon. ABDOMINAL WALL: Small fat-containing left-sided inguinal hernia. LYMPH NODES: Normal. VASCULAR: Mild to moderate atherosclerotic calcific disease involving the abdominal aorta and arterial branches within the abdomen and pelvis. PELVIC VISCERA: Prostate and seminal vesicles appear within normal range. OSSEOUS STRUCTURES: Posterior fusion of the L3 and L4 vertebral bodies. The fusion hardware appears intact. Intervertebral disc spacer in place. The remainder of the visualized thoracic and lumbar spine is within normal range. IMPRESSION: 1. Cholelithiasis with secondary CT findings suggestive of acute cholecystitis. Recommend clinical correlation with symptoms. 2. Top normal spleen. 3. Posterior lower lumbar fusion. DICTATED BY: Ricardo MD,Denia DATE/TIME DICTATED:07/01/171538 DIAL MOUNTER:TRACY DATE/TIME TRANSCRIBED:1538 CONFIDENTIAL, DO NOT COPY WITHOUT APPROPRIATE AUTHORIZATION. < Electronically signed in Other Vendor System> SIGNED BY: Denia Silva MD [id number] Initial ED EKG: NSR, nonspecific ST T wave chg Prior EKG: unchanged Comments: Patient is feeling much better. There is no further abdominal pain. On exam his abdomen is soft with minimal tenderness in the right upper quadrant with normal bowel sounds. There is no rebound or guarding. Case was discussed with Dr. Mello. He will see the patient in the emergency department. Departure Departure Disposition: STILL A PATIENT Condition: Stable Clinical Impression Primary Impression: Cholecystitis Referrals: Ernesto PAUL,Reji Riley (PCP/Family) Departure Forms: Customer Survey General Discharge Information Observation Note Spoke With: Ronnie Mello MD Physician Advisor Notified: REGINA PAUL,BALWINDER Manuel. Place Patient In: Non-ED OBS Care Area Rationale for Observation: My rational for observation is as follows [LAP ANGEL WHEN CARDIOLOGY CLEARS,IV PAIN CONTROL, IV FLUIDS, PAIN CONTROL, IV ABX].
[2017-07-01 14:18] LABS: ABSOLUTE BASOPHIL COUNT 0 /CUMM (0.0-0.2); ABSOLUTE EOSINOPHIL COUNT 0.1 /CUMM (0.0-0.7); ABSOLUTE GRANULOCYTE CT 3.7 /CUMM (1.4-6.5); ABSOLUTE LYMPH COUNT 0.8 /CUMM (1.2-3.4); ABSOLUTE MONOCYTE COUNT 0.3 /CUMM (0.10-0.60); BASOPHIL % 0.5 % (0.0-2.0); EOSINOPHIL % 2.7 % (0-5); GRANULOCYTE % 74.4 % (42.2-75.2); HEMATOCRIT 32.8 % (42-52); MEAN CORPUSCULAR HGB 23.1 PG (27.0-31.0); MEAN CORPUSCULAR HGB CONC 31.3 G/DL (33.0-37.0); MEAN CORPUSCULAR VOLUME 73.8 FL (80.0-94.0); MEAN PLATELET VOLUME 9.1 FL (7.4-10.4); PLATELET COUNT 238 /CUMM (130-400); RBC DISTRIBUTION WIDTH 18.7 % (11.5-14.5); RED BLOOD CELL CT 4.45 /CUMM (4.70-6.10)
--- NOTE | 2017-07-01 15:50 | CT SCAN REPORT ---
EXAMINATION: CT ABDOMEN AND PELVIS WITHOUT CONTRAST CLINICAL INFORMATION: Severe epigastric pain COMPARISON: Ultrasound 05/14/2017 TECHNIQUE: Multidetector volumetric imaging was performed from the superior aspect of the liver through the pubic symphysis. Sagittal and coronal reformatted images were obtained on the technologist's workstation. DLP: 382 mGy-cm FINDINGS: LUNG BASES: Bibasilar atelectasis LIVER, GALLBLADDER, AND BILIARY TREE: The liver is normal in size, shape, and attenuation. No focal hepatic lesion or biliary ductal dilatation is present. The gallbladder is distended. There are multiple gallstones layering within the neck of the gallbladder. There is a small amount of pericholecystic fluid. PANCREAS: Relative fatty atrophy of the pancreas. SPLEEN: The spleen measures up to 13 cm in length. ADRENAL GLANDS: Unremarkable. KIDNEYS AND URETERS: The kidneys are normal in size, shape, and attenuation. No hydronephrosis, hydroureter, or calculi seen. No perinephric stranding. BLADDER: Unremarkable. GASTROINTESTINAL TRACT: Stomach is mildly distended with food. There is an air-fluid level within the proximal duodenum. There may be some mild inflammatory changes in the region of the rupali hepatis. No dilated loops of small or large bowel. Moderate stool volume throughout the colon. ABDOMINAL WALL: Small fat-containing left-sided inguinal hernia. LYMPH NODES: Normal. VASCULAR: Mild to moderate atherosclerotic calcific disease involving the abdominal aorta and arterial branches within the abdomen and pelvis. PELVIC VISCERA: Prostate and seminal vesicles appear within normal range. OSSEOUS STRUCTURES: Posterior fusion of the L3 and L4 vertebral bodies. The fusion hardware appears intact. Intervertebral disc spacer in place. The remainder of the visualized thoracic and lumbar spine is within normal range. IMPRESSION: 1. Cholelithiasis with secondary CT findings suggestive of acute cholecystitis. Recommend clinical correlation with symptoms. 2. Top normal spleen. 3. Posterior lower lumbar fusion.
[2017-07-01] MEDS ORDERED: SENNA8.6 M3 PO (16:38)
[2017-07-01] MEDS ORDERED: HUMALOG KW100 UNIT/1 SC (16:38)
--- NOTE | 2017-07-01 17:46 | History & Physical Pre-Op ---
General Information and HPI MD Statement: I have seen and personally examined ELMER RUIZ and documented this H&P. The patient is a 81 year old M who presented with a patient stated chief complaint of [abdominal pain]. History of Present Illness: Patient is a 81-year-old male who presents to emergency room with acute onset of severe epigastric abdominal pain with radiation to the right upper quadrant. Began after a meal of sausage and pizza. He developed diaphoresis and vomiting. There is severe pain. Coming to the emergency room he was giving a dose of Toradol and antiemetics with marked resolution of his symptoms. There is still right upper quadrant abdominal pain. No prior episodes of pain. 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 He is known to have gallstones which were previously asymptomatic. Allergies/Medications Allergies: Coded Allergies: NO KNOWN ALLERGIES (04/21/14) Home Med list Aspirin (Ecotrin*) 81 MG TABLET.DR 1 TAB PO DAILY HEART/BLOOD (Reported) Calcium Carbonate/Vitamin D3 (Calcium 500 + D Tablet) 500 MG-400 TABLET 1 TAB PO QAM SUPPLEMENT (Reported) Fenofibrate Nanocrystallized (Fenofibrate) 145 MG TABLET 1 TAB PO DAILY CHOLESTEROL/TRIGLYCERIDES (Reported) Finasteride 5 MG TABLET 1 TAB PO QPM PROSTATE (Reported) Gabapentin 300 MG CAPSULE 1 CAP PO QPM NERVE PAIN (Reported) Insulin Detemir (Levemir Flextouch) 100 UNIT/ML (3 ML) INSULN.PEN 30 UNITS SC QAM DM (Reported) Insulin Lispro (Humalog Kwikpen U-100) (Unknown Strength) INSULN.PEN (Unknown Dose) SC TIDAC/HS DM (Reported) Lacosamide (Vimpat) 100 MG TABLET 1 TAB PO BID seizure disorder Losartan/Hydrochlorothiazide (Losartan-Hctz 100-25 MG Tab) 100 MG-25 MG TABLET 1 TAB PO QPM BP (Reported) Metformin HCl 500 MG TABLET 1 TAB PO BID DM (Reported) [place]-3/Dha/Epa/Fish Oil (Fish Oil 1,000 MG Softgel) 250 MG-500 MG-1,000 MG CAPSULE 1 CAP PO BID SUPPLEMENT (Reported) Sennosides (Senna) 8.6 MG TABLET 1 TAB PO DAILY GI (Reported) Simvastatin (Simvastatin*) 40 MG TABLET 1 TAB PO QPM CHOLESTEROL (Reported) Past History Medical History Neurological: seizure EENT: NONE Cardiovascular: CAD, hypertension, PVD Respiratory: NONE Gastrointestinal: NONE Hepatic: 1FATTY LIVER Renal: NONE Musculoskeletal: disk herniation, fracture, CARPAL TUNNEL Psychiatric: NONE Endocrine: diabetes Blood Disorders: NONE 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 Abdominal pain per HPI, nausea and vomiting. No dysuria. Remainder 12 points negative Exam & Diagnostic Data Last 24 Hrs of Vital Signs/I&O Vital Signs Date Time Temp Pulse Resp B/P B/P Pulse O2 O2 Flow FiO2 Mean Ox Delivery Rate 07/01 1421 Room Air 07/01 1323 96.9 70 18 170/77 98 Room Air Intake & Output 07/01 1600 07/01 0800 07/01 0000 Intake Total 1000 Output Total Balance 1000 Intake, IV 1000 Patient 155 lb Weight Weight Reported by Patient Measurement Method Physical Exam: Gen.: He looks well normal habitus younger than his stated age. HEENT: Anicteric PERRL EOMI Chest: Nontender normal laboratory excursion normal respiratory effort heart is regular with no murmurs Abdomen: Soft exquisite tenderness right upper quadrant with involuntary guarding positive Martinez sign no mass no hernia Extremity is no cyanosis clubbing or edema Last 24 Hrs of Labs/[place]: Laboratory Tests 07/01/17 1720: Troponin I Pending 07/01/17 1407: Anion Gap 13, Estimated GFR 42 L, BUN/Creatinine Ratio 23.8, Glucose 93, Calcium 9.7, Total Bilirubin 0.3, AST 29, ALT 29, Alkaline Phosphatase 47, Troponin I < 0.01, Total Protein 6.6, Albumin 4.1, Globulin 2.5, Albumin/ Globulin Ratio 1.6, Lipase 162, CBC w Diff NO MAN DIFF REQ, RBC 4.45 L, MCV 73.8 L, MCH 23.1 L, MCHC 31.3 L, RDW 18.7 H, MPV 9.1, Gran % 74.4, Lymphocytes % 15.6 L, Monocytes % 6.8, Eosinophils % 2.7, Basophils % 0.5, Absolute Granulocytes 3.7, Absolute Lymphocytes 0.8 L, Absolute Monocytes 0.3, Absolute Eosinophils 0.1, Absolute Basophils 0, Acetone Level NEGATIVE Diagnostic Data Other Results Ultrasound from May 2017 was reviewed finding show cholelithiasis without inflammatory changes CT scan of the abdomen pelvis dated today was reviewed. Findings show gallstones and pericholecystic inflammatory changes Assessment/Plan Assessment/Plan: Patient presents with acute cholecystitis as confirmed by CT scan. Given persistence of his pain and exquisite tenderness, recommend admission to hospital for IV antibiotics. Preoperative evaluation by his hernia was made in the morning and plan for laparoscopic cholecystectomy in the afternoon. He and his were informed the risks of the operation including bleeding infection conversion to open as well as postcholecystectomy diarrhea and agrees proceed. As Ranked By This Provider Problem List: 1. Acute cholecystitis Copies To: Ernesto PAUL,Reji Riley
[2017-07-01 21:46] VITALS: BP 176/100
[2017-07-02 01:31] VITALS: BP 132/96
[2017-07-02 06:20] VITALS: BP 146/88
--- NOTE | 2017-07-02 07:53 | PN- General Surgery ---
See Addendum Subjective Subjective: abd pain improved, still lingering in ruq/epigastric. no n/v, no cp/sob. + voids. awaiting surgery Objective Vital Signs and I&Os Vital Signs Date Time Temp Pulse Resp B/P B/P Pulse O2 O2 Flow FiO2 Mean Ox Delivery Rate 07/03 619 98.7 67 18 146/88 96 Room Air 07/02 0131 65 132/96 07/01 2146 98.8 73 18 176/100 95 07/01 2024 98.3 83 20 138/81 97 Room Air 07/01 1757 98.7 77 18 126/71 96 Room Air 07/01 1421 Room Air 07/01 1323 96.9 70 18 170/77 98 Room Air Intake & Output 07/02 0800 07/02 0000 07/01 1600 07/01 0800 07/01 0000 06/30 1600 Intake Total 555 1000 Output Total Balance 555 1000 Intake, IV 75 1000 Intake, Oral 480 Patient 159 lb 155 lb Weight Weight Bed scale Reported by Patient Measurement Method Physical Exam: gen- nad card- s1s2 pulm- no audible wheeze abd- ttp ruq, epigastric area. soft. nd ext- calves soft nt, alps on Results Last 48 Hours of Labs: Laboratory Tests 07/01 07/01 1720 1407 Chemistry Sodium (137 - 145 mmol/L) 145 Potassium (3.5 - 5.1 mmol/L) 4.5 Chloride (98 - 107 mmol/L) 107 Carbon Dioxide (22 - 30 mmol/L) 25 Anion Gap (5 - 16) 13 BUN (9 - 20 mg/dL) 38 H Creatinine (0.7 - 1.2 mg/dL) 1.6 H Estimated GFR (>60 ml/min) 42 L BUN/Creatinine Ratio (7 - 25 %) 23.8 Glucose (65 - 99 mg/dL) 93 Calcium (8.4 - 10.2 mg/dL) 9.7 Total Bilirubin (0.2 - 1.3 mg/dL) 0.3 AST (17 - 59 U/L) 29 ALT (21 - 72 U/L) 29 Alkaline Phosphatase (< 127 U/L) 47 Troponin I (<0.11 ng/ml) < 0.01 < 0.01 Total Protein (6.3 - 8.2 g/dL) 6.6 Albumin (3.5 - 5.0 g/dL) 4.1 Globulin (1.9 - 4.2 gm/dL) 2.5 Albumin/Globulin Ratio (1.1 - 2.2 %) 1.6 Lipase (23 - 300 U/L) 162 Hematology CBC w Diff NO MAN DIFF REQ WBC (4.8 - 10.8 /CUMM) 5.0 RBC (4.70 - 6.10 /CUMM) 4.45 L Hgb (14.0 - 18.0 G/DL) 10.3 L Hct (42 - 52 %) 32.8 L MCV (80.0 - 94.0 FL) 73.8 L MCH (27.0 - 31.0 PG) 23.1 L MCHC (33.0 - 37.0 G/DL) 31.3 L RDW (11.5 - 14.5 %) 18.7 H Plt Count (130 - 400 /CUMM) 238 MPV (7.4 - 10.4 FL) 9.1 Gran % (42.2 - 75.2 %) 74.4 Lymphocytes % (20.5 - 51.1 %) 15.6 L Monocytes % (1.7 - 9.3 %) 6.8 Eosinophils % (0 - 5 %) 2.7 Basophils % (0.0 - 2.0 %) 0.5 Absolute Granulocytes (1.4 - 6.5 /CUMM) 3.7 Absolute Lymphocytes (1.2 - 3.4 /CUMM) 0.8 L Absolute Monocytes (0.10 - 0.60 /CUMM) 0.3 Absolute Eosinophils (0.0 - 0.7 /CUMM) 0.1 Absolute Basophils (0.0 - 0.2 /CUMM) 0 Toxicology Acetone Level (NEGATIVE) NEGATIVE Assessment/Plan Assessment/Plan A- 81M with acute cholecystitis, PMH CAD, DM, HTN,with DAEN on admission- awaiting cards clearance pending surgery. P- await clearance- medical vs cardiac fu labs npo ivf riss, fingersticks, half home levemir home meds prn pain meds oob, ambulate, dvt ppx unasyn to or when cleared will dw attending Core Measures Venous Thromboembolism VTE Risk Factors Acute Medical Illness No Mechanical VTE Prophylaxis d/t N/A MechProphylax Ordered No VTE Pharm Prophylaxis d/t NA PharmProphylax ordered
--- NOTE | 2017-07-02 08:22 | Cons- Medical ---
Liz Moseley 07/02/17 0821: General Information and HPI Consulting Request Date of Consult: 07/02/17 Requested By: Riaz PAUL,Ronnie Manuel Reason for Consult: medical management Source of Information: patient Exam Limitations: no limitations History of Present Illness: This is a 81 YO M w/PMH significant for seizure, HTN (follows with Dr. Orozco), steatohepatitis/early cirrhosis, cholelithiasis, hyperlipidemia, BPH who was admitted to the surgical service for acute cholecystitis. He is awaiting cholecystectomy, medical team was consulted for preoperative evaluation. The patient initially presented to the hospital with the acute onset of severe abdominal pain radiating to right upper quadrant. His pain started after having a fatty meal (sausage pizza). He does not have any prior episode of similar symptoms. Regarding his prior cardiac history, he denies having any history of CAD/TN, or heart failure he follows with Dr. Denton and underwent echocardiogram approximately 3 years ago. He was told that he was "have a blockage" in his heart which is not concerning. He denies having any stents placed. The patient and his was present at bedside are unsure of the detail of these tests also we don't have the records available. He has been diagnosed with a seizure 4 years ago, he is on Vimpat, his last seizure activity was a grand mal seizure 3 months ago because he ran out of his medications. He denies any history of CVA. Regarding diabetes, he is on Levemir 30 units every morning, Humalog sliding scale and metformin 500 twice a day. He states check his blood glucose levels 3 times a day and they are not usually well controlled. He states that that his blood pressure is usually well controlled. At the time of our interview, the patient denies any chest pain, shortness of breath, headache, dizziness, lightheadedness, nausea, vomiting, abdominal pain, urinary symptoms. He denies tobacco, EtOH or illicit drug use. Of note, patient's states that he has been taking an [id number] supplement for liver detox for the past 2 weeks. (She is unsure of the name). Allergies/Medications Allergies: Coded Allergies: NO KNOWN ALLERGIES (04/21/14) Current Medications: Current Medications Sig/Deangelo Start time Last Medication Dose Route Stop Time Status Admin Acetaminophen 650 MG Q6P PRN 07/01 2145 AC 07/02 PO 0814 Ampicillin Sodium/ 3,000 MG Q6 07/01 2359 AC 07/02 Sulbactam Sodium IV 0606 Sodium Chloride 100 ML Ampicillin Sodium/ 0 .STK-MED ONE 07/01 1749 DC Sulbactam Sodium .ROUTE Ampicillin Sodium/ 3,000 MG ONCE ONE 07/01 1745 DC 07/01 Sulbactam Sodium IV 07/01 1814 1746 Sodium Chloride 100 ML Atorvastatin Calcium 20 MG 1700 07/02 1700 DC PO Atorvastatin Calcium 20 MG 1700 07/02 1700 CAN PO Dextrose/Sodium 1,000 ML .[id number] 07/01 214 AC 07/01 Chloride IV 2212 Docusate Sodium 100 MG BID 07/01 2100 DC 07/01 PO 2220 Finasteride 5 MG QPM 07/02 2100 AC PO Finasteride 5 MG QPM 07/01 2100 DC PO Gabapentin 300 MG QPM 07/02 2100 AC PO Gabapentin 300 MG QPM 07/01 2100 DC PO Heparin Sodium 5,000 UNIT Q8 07/01 2200 AC 07/02 (Porcine) SC 0606 Hydrochlorothiazide 25 MG DAILY 07/02 0900 AC 07/02 PO 0806 Insulin Detemir 15 UNITS DAILY 07/02 0900 AC 07/02 SC 0806 Insulin Human Regular 0 Q6 07/01 2359 AC 07/02 SC 0606 Ketorolac 0 .STK-MED ONE 07/01 1419 DC Tromethamine .ROUTE Ketorolac 15 MG ONCE ONE 07/01 1400 DC 07/01 Tromethamine IV 07/01 1401 1418 Lacosamide 100 MG BID 07/02 0900 AC 07/02 PO 0806 Lacosamide 100 MG ONCE ONE 07/01 2230 DC 07/01 PO 07/01 223 2229 Lacosamide 100 MG BID 07/01 2100 DC PO Losartan Potassium 100 MG DAILY 07/02 0900 DC PO Losartan Potassium 100 MG DAILY 07/02 0900 AC 07/02 PO 0806 Metformin HCl 500 MG 0800,0 07/02 0800 DC PO Metformin HCl 500 MG 0800,0 07/02 0800 CAN PO Metformin HCl 500 MG 0800,1700 07/01 2012 DC PO Morphine Sulfate 2 MG Q2P PRN 07/01 214 AC IV Morphine Sulfate 0 .STK-MED ONE 07/01 1855 DC .ROUTE Morphine Sulfate 4 MG ONCE ONE 07/01 1845 DC 07/01 IV 07/01 1846 1851 Ondansetron HCl 4 MG Q6P PRN 07/01 214 AC IV Ondansetron HCl 0 .STK-MED ONE 07/01 1419 DC .ROUTE Ondansetron HCl 4 MG ONCE ONE 07/01 1400 DC 07/01 IV 07/01 1401 1418 Oxycodone/ 1 TAB Q4P PRN 07/01 2144 AC Acetaminophen PO Oxycodone/ 2 TAB Q4P PRN 07/01 2145 AC 07/02 Acetaminophen PO 0001 Sodium Chloride 1,000 ML BOLUS ONE 07/01 1400 DC 07/01 IV 07/01 1459 1417 Review of Systems Review of Systems Constitutional: Reports: no symptoms. EENTM: Reports: no symptoms. Cardiovascular: Reports: no symptoms. Denies: chest pain, edema, orthopena, palpitations, peripheral edema, syncope. Respiratory: Reports: no symptoms. GI: Reports: see HPI. Genitourinary: Reports: no symptoms. Musculoskeletal: Reports: back pain, joint pain. Skin: Reports: no symptoms. Neurological/Psychological: Reports: other (seizure). Hematologic/Endocrine: Reports: no symptoms. Immunologic/Allergic: Reports: no symptoms. Past History Travel History Traveled to [place] past 21 day No Medical History Blood Transfusion Hx: Yes Neurological: seizure EENT: NONE Cardiovascular: CAD, hypertension, PVD Respiratory: NONE Gastrointestinal: NONE Hepatic: 1FATTY LIVER Renal: NONE Musculoskeletal: disk herniation, fracture, CARPAL TUNNEL Psychiatric: NONE Endocrine: diabetes Blood Disorders: NONE Cancer(s): NONE PULLER MACHINE/Reproductive: NONE Surgical History Surgical History: laminectomy, knee carpal tunnel release, right Psychosocial History Where Do You Live? Home Services at Home: None Smoking Status: Former Smoker ETOH Use: denies use Illicit Drug Use: denies illicit drug use Exam & Diagnostic Data Last 24 Hrs of Vital Signs/I&O Vital Signs Date Time Temp Pulse Resp B/P B/P Pulse O2 O2 Flow FiO2 Mean Ox Delivery Rate 07/02 0806 62 154/70 07/03 619 98.7 67 18 146/88 96 Room Air 07/02 0131 65 132/96 07/01 2145 98.8 73 18 176/100 95 07/02 2023 98.3 83 20 138/81 97 Room Air 07/01 1757 98.7 77 18 126/71 96 Room Air 07/01 1421 Room Air 07/01 1323 96.9 70 18 170/77 98 Room Air Intake & Output 07/02 1600 07/02 0800 07/02 0000 Intake Total 600 555 Output Total Balance 600 555 Intake, IV 600 75 Intake, Oral 0 480 Patient 159 lb Weight Weight Bed scale Measurement Method Physical Exam General Appearance: no apparent distress, alert, awake, comfortable Head: atraumatic, normal appearance Eyes: Bilateral: normal appearance, PERRL, EOMI. Ears, Nose, Throat: normal pharynx, normal ENT inspection, hearing grossly normal Neck: normal inspection, supple Respiratory: normal breath sounds, chest non-tender, no respiratory distress Cardiovascular: regular rate/rhythm, no murmur Gastrointestinal: soft, epigastric abdominal tenderness, no rebound Back: normal inspection Extremities: normal inspection, no edema, pulses wnl and symmetrical Neurologic/Psych: no motor/sensory deficits, awake, alert, oriented x 3, manager business information II- XII nml as tested Cranial Nerves: normal hearing, normal speech, PERRL, see neuro exam Skin: jaundice Last 24 Hrs of Labs/[place]: Laboratory Tests 07/02/17 0722: Anion Gap 12, Estimated GFR 39 L, BUN/Creatinine Ratio 22.9, CBC w Diff NO MAN DIFF REQ, RBC 3.61 L, MCV 73.5 L, MCH 23.3 L, MCHC 31.7 L, RDW 18.9 H, MPV 9.5, Gran % 56.1, Lymphocytes % 26.7, Monocytes % 10.0 H, Eosinophils % 6.4 H, Basophils % 0.8, Absolute Granulocytes 1.1 L, Absolute Lymphocytes 0.5 L, Absolute Monocytes 0.2, Absolute Eosinophils 0.1, Absolute Basophils 0 07/01/17 1720: Troponin I < 0.01 07/01/17 1407: Anion Gap 13, Estimated GFR 42 L, BUN/Creatinine Ratio 23.8, Glucose 93, Calcium 9.7, Total Bilirubin 0.3, AST 29, ALT 29, Alkaline Phosphatase 47, Troponin I < 0.01, Total Protein 6.6, Albumin 4.1, Globulin 2.5, Albumin/ Globulin Ratio 1.6, Lipase 162, CBC w Diff NO MAN DIFF REQ, RBC 4.45 L, MCV 73.8 L, MCH 23.1 L, MCHC 31.3 L, RDW 18.7 H, MPV 9.1, Gran % 74.4, Lymphocytes % 15.6 L, Monocytes % 6.8, Eosinophils % 2.7, Basophils % 0.5, Absolute Granulocytes 3.7, Absolute Lymphocytes 0.8 L, Absolute Monocytes 0.3, Absolute Eosinophils 0.1, Absolute Basophils 0, Acetone Level NEGATIVE Diagnostic Data EKG Results 07/01/2017, 13:14, sinus rhythm, rate 66, QTC 415, no ST-T wave abnormalities 07/01/2017, 17:28, sinus rhythm, 77, QTC 417, no ST-T wave abnormalities CXR Results Not done Other Results CT ABD & PELVIS W/O IV CONTRAS 07/01/17-1513 1. Cholelithiasis with secondary CT findings suggestive of acute cholecystitis. Recommend clinical correlation with symptoms. 2. Top normal spleen. 3. Posterior lower lumbar fusion. Echocardiogram, 04/21/2014 CONCLUSIONS Normal size left ventricle. Mild to moderate concentric left ventricular hypertrophy. Normal left ventricular ejection fraction visually estimated at >70 %. "pseudonormal" filling pattern of the left ventricle for age (stage 2 diastolic dysfunction). Normal right ventricular size and function. Normal atrial size. Mild mitral regurgitation. No hemodynamically significant aortic stenosis. Mild aortic regurgitation. Mild tricuspid regurgitation. Right ventricular systolic pressure estimated at 36 mmHg. No pulmonic regurgitation. Mildly dilated proximal ascending aorta (tube). Dilated IV Procedure Date: 06/21/15 Procedure Type: EGD w/biopsy Product Sales Engineer: AGUILAR ALLRED MD ASA Classification: II Indications: 1. GERD 2. Advanced hepatic fibrosis, rule out evidence of portal hypertension 3. Follow-up lesion of the cardia with intestinal metaplasia Instrument: diagnostic gastroscope Meds Received: MAC Patient's Tolerance: good Complications: none Extent Reached: second part of duodenum Procedure: The patient signed informed consent, and was medicated. Lidocaine pharyngeal spray was administered. Pulse oximetry, blood pressure and cardiac monitoring were performed continuously throughout the procedure. The Olympus high- definition gastroscope was inserted into the mouth and advanced to the duodenum. Retroflexion was performed within the stomach to examine the cardia. Careful examination was performed. Findings: The esophagus had normal caliber and contour. The mucosa was intact throughout without erosion, ulceration, nodularity or erythema. There were no varices. The GE junction/squamocolumnar junction at 37 cm was normal, without evidence of metaplasia. There was a small hiatal hernia. The stomach had normal distention and active antral peristalsis. In the cardia on the greater curvature was a previously identified raised/flat lesion, of approximately 8 mm. Multiple biopsies were obtained. There were no varices, nor evidence of portal hypertensive gastropathy. The mucosa and rugae in the fundus and body were otherwise normal. The incisura was normal. Within the antrum were several raised areas of erythema, 2 of which which had whitecaps. These were biopsied. The antral mucosa was otherwise normal. The pyloric channel was normal. The duodenal bulb was normal without erosion, ulceration or deformity. Mucosa and folds of the duodenal sweep were normal. Impression: No varices/portal hypertensive gastropathy No esophagitis Lesion of cardia, without change Foci of raised erythema in antrum Recommendations: Await pathology Pending above, consideration for EUS/EMR Continue PPI Assessment/Plan Assessment/Plan This is a 81 YO M w/PMH significant for seizure, HTN, steatohepatitis/early cirrhosis, cholelithiasis, hyperlipidemia, BPH who was admitted to the surgical service for acute cholecystitis. Spoke with [facility], Dr. Márquez; apparently patient had an abnormal stress test(ischemia in the apical region) in 2015. Per available prior records, noticed patient echocardiogram in 2014 reveals stage 2 diastolic dysfunction. Problem list: #Acute cholecystitis #Leukopenia(WBC 1.9, reviewing the chart reveals levels 2.8, 3 in 2014 and 2016. Patient and were not aware of problem and have never done any workup regarding this #Anemia #Diabetes #Hypertension, hyperlipidemia, BPH #Seizure #Elevated creatinine;close to baseline #Remote thrombocytopenia (123 in May 2016, 68 in June 2012) Recommendations: Calculating RCR I, The patient is not undergoing a high risk surgery, he does have a history of ischemic heart disease (ischemia revealed in stress test in 2016 as per cardiology), also he has history of congestive heart failure (stage II diastolic dysfunction as per echo in 2014), he is diabetic on insulin therapy , no history of CVA, creatinine below 2(1.7). Based on the above, His RCRI score is 3, has 11% risk of major cardiac event (mildmoderate). -C/w unasyn at this point and monitor WBC closely -May benefit from hematology consult as an outpatiet -Obtain blood cultures -Repeat CBC tomorrow -He would benefit from cardiology evaluation before his surgery. -Would hold metformin, and hydrochlorothiazide preop. -Decision about aspirin based on cardiology and surgery evaluation. -C/w with other medications including Vimpat, insulin, lisinopril. -DVT prophylaxis at all times. -Consider GI prophylaxis. The case was discussed with attending Dr. Miller, please refer to his addendum for further recommendations. Problem List: 1. Acute cholecystitis Copies To: Riaz PAUL,Ronnie Manuel Consult Acknowledgment - Thank you for your consult request. Nai Miller 07/02/17 6472: General Information and HPI Allergies/Medications Home Med List: Aspirin (Ecotrin*) 81 MG TABLET.DR 1 TAB PO DAILY HEART/BLOOD (Reported) Calcium Carbonate/Vitamin D3 (Calcium 500 + D Tablet) 500 MG-400 TABLET 1 TAB PO QAM SUPPLEMENT (Reported) Fenofibrate Nanocrystallized (Fenofibrate) 145 MG TABLET 1 TAB PO DAILY CHOLESTEROL/TRIGLYCERIDES (Reported) Finasteride 5 MG TABLET 1 TAB PO QPM PROSTATE (Reported) Gabapentin 300 MG CAPSULE 1 CAP PO QPM NERVE PAIN (Reported) Insulin Detemir (Levemir Flextouch) 100 UNIT/ML (3 ML) INSULN.PEN 30 UNITS SC QAM DM (Reported) Insulin Lispro (Humalog Kwikpen U-100) (Unknown Strength) INSULN.PEN (Unknown Dose) SC TIDAC/HS DM (Reported) Lacosamide (Vimpat) 100 MG TABLET 1 TAB PO BID seizure disorder Losartan/Hydrochlorothiazide (Losartan-Hctz 100-25 MG Tab) 100 MG-25 MG TABLET 1 TAB PO QPM BP (Reported) Metformin HCl 500 MG TABLET 1 TAB PO BID DM (Reported) [place]-3/Dha/Epa/Fish Oil (Fish Oil 1,000 MG Softgel) 250 MG-500 MG-1,000 MG CAPSULE 1 CAP PO BID SUPPLEMENT (Reported) Oxycodone HCl/Acetaminophen (Percocet 5-325 MG Tablet) 5 MG-325 MG TABLET 1-2 TAB PO Q4-6 PRN PAIN Sennosides (Senna) 8.6 MG TABLET 1 TAB PO DAILY GI (Reported) Simvastatin (Simvastatin*) 40 MG TABLET 1 TAB PO QPM CHOLESTEROL (Reported) Assessment/Plan Consult Acknowledgment - Thank you for your consult request. Attending MD Review Statement Attending Statement Attending MD Statement: examined this patient, discuss w/resident/PA/CONTROL OPERATOR FLOW COAT, agreed w/resident/PA/CONTROL OPERATOR FLOW COAT, reviewed EMR data (avail) Attending Assessment/Plan: 81 yr old male with pmh of dm on insulin, htn, hld, seizure disorder on vimpat, admitted with abdominal pain secondary to acute choleycystitis. d/w with cardiology the perioperative risk given his h/o DM,HTN,CKD, HLD and ? ischemia on previous stress test. Pt would be a mild- to- moderate risk for perioperative cardiac event for a low risk surgery . Pt was made aware of the risk. We have held his hctz and metformin prior to surgery. Pt does not need any furhter cardiac workup prior to the surgery. Cont to monitor closely post surgery. Leukopenia with neutropenia- pt does have prior episodes of luekopenia. Will monitor cbc closely for white count, hb and platelets. Pt will benefit from outpt follow up with hematology and if leukopenia is persistent will get them to see him while inpatinet. dw/ pt the care plan.
[2017-07-02 08:48] LABS: ABSOLUTE BASOPHIL COUNT 0 /CUMM (0.0-0.2); ABSOLUTE EOSINOPHIL COUNT 0.1 /CUMM (0.0-0.7); ABSOLUTE GRANULOCYTE CT 1.1 /CUMM (1.4-6.5); ABSOLUTE LYMPH COUNT 0.5 /CUMM (1.2-3.4); ABSOLUTE MONOCYTE COUNT 0.2 /CUMM (0.10-0.60); BASOPHIL % 0.8 % (0.0-2.0); EOSINOPHIL % 6.4 % (0-5); GRANULOCYTE % 56.1 % (42.2-75.2); MEAN CORPUSCULAR HGB 23.3 PG (27.0-31.0); MEAN CORPUSCULAR HGB CONC 31.7 G/DL (33.0-37.0); MEAN CORPUSCULAR VOLUME 73.5 FL (80.0-94.0); MEAN PLATELET VOLUME 9.5 FL (7.4-10.4); PLATELET COUNT 147 /CUMM (130-400); RBC DISTRIBUTION WIDTH 18.9 % (11.5-14.5); RED BLOOD CELL CT 3.61 /CUMM (4.70-6.10)
[2017-07-02 09:20] LABS: HEMATOCRIT 26.5 % (42-52); WHITE BLOOD CELL COUNT 1.9 /CUMM (4.8-10.8)
--- NOTE | 2017-07-02 11:53 | Cons- Cardiology ---
General Information and HPI Consulting Request Date of Consult: 07/02/17 Requested By: Riaz PAUL,Ronnie Manuel Reason for Consult: Preoperative cardiac risk assessment Source of Information: patient, family, old records History of Present Illness: This is a pleasant 81-year-old male with a past medical history of mild aortic dilatation, abnormal nuclear stress test managed medically, renal insufficiency, diabetes, hypertension, and hyperlipidemia who presented to [facility] with a chief complaint of moderate intensity right upper quadrant abdominal pain following a meal. He denied associated chest pain, dyspnea, or palpitations. At baseline he has good exertional tolerance greater than 4 METS. He has a history of a mildly abnormal nuclear stress test which was quite well. He denies any prior myocardial infarction or intra-coronary intervention. His abdominal pain is improving. He denies any headache, slurring of speech, focal weakness, visual changes, or recent seizure activity. No associated orthopnea/paroxysmal nocturnal dyspnea. Allergies/Medications Allergies: Coded Allergies: NO KNOWN ALLERGIES (04/21/14) Home Med List: Aspirin (Ecotrin*) 81 MG TABLET.DR 1 TAB PO DAILY HEART/BLOOD (Reported) Calcium Carbonate/Vitamin D3 (Calcium 500 + D Tablet) 500 MG-400 TABLET 1 TAB PO QAM SUPPLEMENT (Reported) Fenofibrate Nanocrystallized (Fenofibrate) 145 MG TABLET 1 TAB PO DAILY CHOLESTEROL/TRIGLYCERIDES (Reported) Finasteride 5 MG TABLET 1 TAB PO QPM PROSTATE (Reported) Gabapentin 300 MG CAPSULE 1 CAP PO QPM NERVE PAIN (Reported) Insulin Detemir (Levemir Flextouch) 100 UNIT/ML (3 ML) INSULN.PEN 30 UNITS SC QAM DM (Reported) Insulin Lispro (Humalog Kwikpen U-100) (Unknown Strength) INSULN.PEN (Unknown Dose) SC TIDAC/HS DM (Reported) Lacosamide (Vimpat) 100 MG TABLET 1 TAB PO BID seizure disorder Losartan/Hydrochlorothiazide (Losartan-Hctz 100-25 MG Tab) 100 MG-25 MG TABLET 1 TAB PO QPM BP (Reported) Metformin HCl 500 MG TABLET 1 TAB PO BID DM (Reported) [place]-3/Dha/Epa/Fish Oil (Fish Oil 1,000 MG Softgel) 250 MG-500 MG-1,000 MG CAPSULE 1 CAP PO BID SUPPLEMENT (Reported) Sennosides (Senna) 8.6 MG TABLET 1 TAB PO DAILY GI (Reported) Simvastatin (Simvastatin*) 40 MG TABLET 1 TAB PO QPM CHOLESTEROL (Reported) Current Medications: Current Medications Sig/Deangelo Start time Last Medication Dose Route Stop Time Status Admin Acetaminophen 650 MG Q6P PRN 07/01 2145 AC 07/02 PO 0814 Ampicillin Sodium/ 3,000 MG Q6 07/01 2359 AC 07/02 Sulbactam Sodium IV 0606 Sodium Chloride 100 ML Ampicillin Sodium/ 0 .STK-MED ONE 07/01 1749 DC Sulbactam Sodium .ROUTE Ampicillin Sodium/ 3,000 MG ONCE ONE 07/01 1745 DC 07/01 Sulbactam Sodium IV 07/01 1814 1746 Sodium Chloride 100 ML Atorvastatin Calcium 20 MG 1700 07/02 1700 DC PO Atorvastatin Calcium 20 MG 1700 07/02 1700 CAN PO Dextrose/Sodium 1,000 ML .[id number] 07/01 2145 AC 07/01 Chloride IV 2212 Docusate Sodium 100 MG BID 07/01 2100 DC 07/01 PO 2220 Finasteride 5 MG QPM 07/02 2100 AC PO Finasteride 5 MG QPM 07/01 2100 DC PO Gabapentin 300 MG QPM 07/02 2100 AC PO Gabapentin 300 MG QPM 07/01 2100 DC PO Heparin Sodium 5,000 UNIT Q8 07/01 2200 AC 07/02 (Porcine) SC 0606 Hydrochlorothiazide 25 MG DAILY 07/02 0900 DC 07/02 PO 0806 Insulin Detemir 15 UNITS DAILY 07/02 0900 AC 07/02 SC 0806 Insulin Human Regular 0 Q6 07/01 2359 AC 07/02 SC 0606 Ketorolac 0 .STK-MED ONE 07/01 1419 DC Tromethamine .ROUTE Ketorolac 15 MG ONCE ONE 07/01 1400 DC 07/01 Tromethamine IV 07/01 1401 1418 Lacosamide 100 MG BID 07/02 0900 AC 07/02 PO 0806 Lacosamide 100 MG ONCE ONE 07/01 2230 DC 07/01 PO 07/01 223 2229 Lacosamide 100 MG BID 07/01 2100 DC PO Losartan Potassium 100 MG DAILY 07/02 0900 DC PO Losartan Potassium 100 MG DAILY 07/02 0900 AC 07/02 PO 0806 Metformin HCl 500 MG 0800,1700 07/02 0800 DC PO Metformin HCl 500 MG 0800,1700 07/02 0800 CAN PO Metformin HCl 500 MG 0800,1700 07/01 2013 DC PO Morphine Sulfate 2 MG Q2P PRN 07/01 214 AC IV Morphine Sulfate 0 .STK-MED ONE 07/01 1855 DC .ROUTE Morphine Sulfate 4 MG ONCE ONE 07/01 1845 DC 07/01 IV 07/01 1846 1851 Ondansetron HCl 4 MG Q6P PRN 07/01 214 AC IV Ondansetron HCl 0 .STK-MED ONE 07/01 1419 DC .ROUTE Ondansetron HCl 4 MG ONCE ONE 07/01 1400 DC 07/01 IV 07/01 1401 1418 Oxycodone/ 1 TAB Q4P PRN 07/01 2144 AC Acetaminophen PO Oxycodone/ 2 TAB Q4P PRN 07/01 214 AC 07/02 Acetaminophen PO 0001 Sodium Chloride 1,000 ML BOLUS ONE 07/01 1400 DC 07/01 IV 07/01 1459 1417 Review of Systems Review of Systems: Review of systems as per HPI. The remainder of a 10 point review of systems was reviewed and was otherwise negative. 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 Home Services at Home: None Smoking Status: Former Smoker ETOH Use: denies use Illicit Drug Use: denies illicit drug use Exam & Diagnostic Data Vital Signs and I&O Vital Signs Date Time Temp Pulse Resp B/P B/P Pulse O2 O2 Flow FiO2 Mean Ox Delivery Rate 07/02 0806 62 154/70 07/02 06 98.7 67 18 146/88 96 Room Air 07/02 0131 65 132/96 07/01 2145 98.8 73 18 176/100 95 07/02 2023 98.3 83 20 138/81 97 Room Air 07/01 175 98.7 77 18 126/71 96 Room Air 07/01 1421 Room Air 07/01 1323 96.9 70 18 170/77 98 Room Air Intake & Output 07/02 0800 07/02 0000 07/01 1600 07/01 0800 07/01 0000 Intake Total 385 107 5277 Output Total Balance 983 199 6075 Intake, IV 179 55 2326 Intake, Oral 0 480 Patient 159 lb 155 lb Weight Weight Bed scale Reported by Patient Measurement Method Physical Exam: General: no apparent distress. Alert. Eyes: No obvious scleral icterus. HEENT: No jugular venous distention or abnormal jugular venous pulsations. Cardiovascular: Normal intensity S1/S2. PMI not grossly displaced. Respiratory: Lungs clear to auscultation bilaterally. Abdomen: no guarding or rebound tenderness. Musculoskeletal: No clubbing or cyanosis noted Skin: warm Neurologic: No gross focal deficits noted. Labs/[place] Results: Laboratory Tests 07/02 07/01 0722 1720 Chemistry Sodium (137 - 145 mmol/L) 143 Potassium (3.5 - 5.1 mmol/L) 4.3 Chloride (98 - 107 mmol/L) 109 H Carbon Dioxide (22 - 30 mmol/L) 23 Anion Gap (5 - 16) 12 BUN (9 - 20 mg/dL) 39 H Creatinine (0.7 - 1.2 mg/dL) 1.7 H Estimated GFR (>60 ml/min) 39 L BUN/Creatinine Ratio (7 - 25 %) 22.9 Troponin I (<0.11 ng/ml) < 0.01 Hematology CBC w Diff NO MAN DIFF REQ WBC (4.8 - 10.8 /CUMM) 1.9 L RBC (4.70 - 6.10 /CUMM) 3.61 L Hgb (14.0 - 18.0 G/DL) 8.4 L Hct (42 - 52 %) 26.5 L MCV (80.0 - 94.0 FL) 73.5 L MCH (27.0 - 31.0 PG) 23.3 L MCHC (33.0 - 37.0 G/DL) 31.7 L RDW (11.5 - 14.5 %) 18.9 H Plt Count (130 - 400 /CUMM) 147 MPV (7.4 - 10.4 FL) 9.5 Gran % (42.2 - 75.2 %) 56.1 Lymphocytes % (20.5 - 51.1 %) 26.7 Monocytes % (1.7 - 9.3 %) 10.0 H Eosinophils % (0 - 5 %) 6.4 H Basophils % (0.0 - 2.0 %) 0.8 Absolute Granulocytes (1.4 - 6.5 /CUMM) 1.1 L Absolute Lymphocytes (1.2 - 3.4 /CUMM) 0.5 L Absolute Monocytes (0.10 - 0.60 /CUMM) 0.2 Absolute Eosinophils (0.0 - 0.7 /CUMM) 0.1 Absolute Basophils (0.0 - 0.2 /CUMM) 0 07/01 1407 Chemistry Sodium (137 - 145 mmol/L) 145 Potassium (3.5 - 5.1 mmol/L) 4.5 Chloride (98 - 107 mmol/L) 107 Carbon Dioxide (22 - 30 mmol/L) 25 Anion Gap (5 - 16) 13 BUN (9 - 20 mg/dL) 38 H Creatinine (0.7 - 1.2 mg/dL) 1.6 H Estimated GFR (>60 ml/min) 42 L BUN/Creatinine Ratio (7 - 25 %) 23.8 Glucose (65 - 99 mg/dL) 93 Calcium (8.4 - 10.2 mg/dL) 9.7 Total Bilirubin (0.2 - 1.3 mg/dL) 0.3 AST (17 - 59 U/L) 29 ALT (21 - 72 U/L) 29 Alkaline Phosphatase (< 127 U/L) 47 Troponin I (<0.11 ng/ml) < 0.01 Total Protein (6.3 - 8.2 g/dL) 6.6 Albumin (3.5 - 5.0 g/dL) 4.1 Globulin (1.9 - 4.2 gm/dL) 2.5 Albumin/Globulin Ratio (1.1 - 2.2 %) 1.6 Lipase (23 - 300 U/L) 162 Hematology CBC w Diff NO MAN DIFF REQ WBC (4.8 - 10.8 /CUMM) 5.0 RBC (4.70 - 6.10 /CUMM) 4.45 L Hgb (14.0 - 18.0 G/DL) 10.3 L Hct (42 - 52 %) 32.8 L MCV (80.0 - 94.0 FL) 73.8 L MCH (27.0 - 31.0 PG) 23.1 L MCHC (33.0 - 37.0 G/DL) 31.3 L RDW (11.5 - 14.5 %) 18.7 H Plt Count (130 - 400 /CUMM) 238 MPV (7.4 - 10.4 FL) 9.1 Gran % (42.2 - 75.2 %) 74.4 Lymphocytes % (20.5 - 51.1 %) 15.6 L Monocytes % (1.7 - 9.3 %) 6.8 Eosinophils % (0 - 5 %) 2.7 Basophils % (0.0 - 2.0 %) 0.5 Absolute Granulocytes (1.4 - 6.5 /CUMM) 3.7 Absolute Lymphocytes (1.2 - 3.4 /CUMM) 0.8 L Absolute Monocytes (0.10 - 0.60 /CUMM) 0.3 Absolute Eosinophils (0.0 - 0.7 /CUMM) 0.1 Absolute Basophils (0.0 - 0.2 /CUMM) 0 Toxicology Acetone Level (NEGATIVE) NEGATIVE Diagnostic Data EKG Results Tracing was personally reviewed and shows sinus rhythm at 66 bpm with no obvious infarct pattern Other Results Abdominal CT 1. Cholelithiasis with secondary CT findings suggestive of acute cholecystitis. Recommend clinical correlation with symptoms. 2. Top normal spleen. 3. Posterior lower lumbar fusion. Assessment/Plan Assessment/Plan 1. Acute cholecystitis 2. History of mild aortic dilatation 3. History of a mildly abnormal nuclear stress test 2016 with a small area of possible ischemia of the apex managed medically 4. History of diabetes/hypertension/hyperlipidemia 5. History of seizure disorder 6. History of chronic renal insufficiency. The patient is currently stable from a cardiac standpoint with no evidence of acute coronary syndrome or decompensated congestive heart failure. He has good exertional tolerance at baseline > 4 METS with no ischemic symptoms. He can proceed with planned surgical intervention at minimally elevated cardiac risk given his history. Resume aspirin therapy when cleared from a postsurgical standpoint. Cole Márquez MD [facility] Consult Acknowledgment - Thank you for your consult request.
[2017-07-02 11:55] VITALS: BP 130/70
--- NOTE | 2017-07-02 14:48 | Operative Report ---
Operative/Inv Procedure Report Surgery Date: 07/02/17 Name of Procedure: Laparoscopic cholecystectomy Pre-Operative Diagnosis: Acute cholecystitis Post-Operative Diagnosis: Same Estimated Blood Loss: 50ml to 100ml Surgeon/Early Intervention Specialist: Riaz PAUL,Ronnie Manuel/Megan PERALTA Anesthesia: general endotracheal tube Drains: 15 [place]-Daley round Specimens: Gallbladder Operative Indication: See preop H&P Operative/Procedure Note Note: After informed consent patient is brought to the operating room and laid supine. General anesthesia was obtained and his abdomen was prepped and draped. The skin above the umbilicus infiltrated with local anesthesia and a curvilinear incision made sharply. We came down through the subcutaneous tissues bluntly and grasped the fascia with [place]'s. A fasciotomy was created sharply and stay sutures placed. The peritoneum was entered sharply and a blunt Hebert port was placed. Pneumoperitoneum was achieved. 3, 5 mm ports were placed in the epigastrium and right upper quadrant after local anesthesia was instilled and under direct vision the camera. he's placed in reverse Trendelenburg and rotated towards the left. The gallbladder is identified. Gallbladder was severely edematous and encased in dense adhesions. It was grasped at the dome and retracted towards the head. Adhesions were painstakingly taken down with cautery and blunt dissection. There is diffuse oozing throughout friable tissue. The gallbladder was severely friable. Eventually we got down to the triangle of [place]. Infundibulum was then grasped. Adhesions to the undersurface were taken down with blunt and cautery dissection. We dissected both sides the triangle Calot peritoneal tissue with cautery. The artery was medial and its normal anatomic position. It was cauterized medially to allow it to be mobilized away from the duct. Hugo was cleared of areolar tissue with cautery. The arteries and duct were doubly ligated with clips. Gallbladder is removed from the fossa electrocautery. It was placed in Endo Catch bag and cinched up. Right upper quadrant was and suction irrigated normal saline. Hemostasis achieved with cautery. A 15 [place] Dallas-Daley round drain was then placed through the lateral port site and secured to the skin with 2-0 nylon. The ports were then removed and the gallbladder delivered and passed off the field. The fascia was closed with 0 Vicryl suture. Skin incisions closed with 4-0 Vicryl. Steri-Strips and sterile dressing applied. Sponge and needle counts are correct. Findings: Severe acute cholecystitis CC: Ernesto PAUL,Reji Riley
--- NOTE | 2017-07-02 15:03 | Patient Discharge Instructions ---
Discharge Instructions General Discharge Information You were seen/treated for: Acute cholecystitis, gallstones You had these procedures: laparoscopic cholecystectoomy Watch for these problems: temp>101, inicreased redness or drainage of wounds Do not soak the wound: Yes No bath, but you may shower: Yes Other wound care: Keep incisions clean and dry. May shower, no bathing or soaking. Diet Continue normal diet: Yes Activity Activity Self Limited: Yes Pounds, do NOT lift more than: 10 Acute Coronary Syndrome Inclusion Criteria At DC or during hospital stay patient has or had the following: Discharge Core Measures Meds if any: Prescribed or Continued at Discharge Meds if any: NOT Prescribed or Continued at Discharge Congestive Heart Failure Inclusion Criteria At DC or during hospital stay patient has or had the following: Discharge Core Measures Meds if any: Prescribed or Continued at Discharge Meds if any: NOT Prescribed or Continued at Discharge Cerebrovascular accident Inclusion Criteria At DC or during hospital stay patient has or had the following: Discharge Core Measures Meds if any: Prescribed or Continued at Discharge Meds if any: NOT Prescribed or Continued at Discharge Venous thromboembolism Discharge Core Measures - Per Current guidelines, there needs to be overlap - treatment for the first 5 days of Warfarin therapy. - If discharged on Warfarin prior to 5 days of - overlap therapy, the patient will need to be - assessed for post discharge needs including - *Post discharge parental anticoagulation - *Warfarin and/or parental anticoagulation education - *Follow up date to check INR post discharge Meds if any: Prescribed or Continued at Discharge Note: Overlap Therapy is Warfarin and Anticoagulant Meds if any: NOT Prescribed or Continued at Discharge
[2017-07-02 15:45] LABS: ABSOLUTE BASOPHIL COUNT 0 /CUMM (0.0-0.2); ABSOLUTE EOSINOPHIL COUNT 0.1 /CUMM (0.0-0.7); ABSOLUTE GRANULOCYTE CT 2.3 /CUMM (1.4-6.5); ABSOLUTE LYMPH COUNT 0.4 /CUMM (1.2-3.4); ABSOLUTE MONOCYTE COUNT 0.1 /CUMM (0.10-0.60); BASOPHIL % 0.3 % (0.0-2.0); EOSINOPHIL % 2.4 % (0-5); GRANULOCYTE % 78.3 % (42.2-75.2); HEMATOCRIT 29.2 % (42-52); MEAN CORPUSCULAR HGB 23.2 PG (27.0-31.0); MEAN CORPUSCULAR HGB CONC 31.5 G/DL (33.0-37.0); MEAN CORPUSCULAR VOLUME 73.9 FL (80.0-94.0); MEAN PLATELET VOLUME 9.1 FL (7.4-10.4); PLATELET COUNT 160 /CUMM (130-400); RED BLOOD CELL CT 3.95 /CUMM (4.70-6.10)
[2017-07-02 15:49] LABS: WHITE BLOOD CELL COUNT 2.9 /CUMM (4.8-10.8)
[2017-07-02 16:15] VITALS: BP 124/70
--- NOTE | 2017-07-02 18:43 | PN- General Surgery ---
Subjective Subjective: POC feeling much better, c/o abd soreness. no n/v. manolo clears. +void. no bowel fxn. no cp/sob Objective Vital Signs and I&Os Vital Signs Date Time Temp Pulse Resp B/P B/P Pulse O2 O2 Flow FiO2 Mean Ox Delivery Rate 07/02 1155 97.4 64 18 130/70 96 Room Air 07/02 0806 62 154/70 07/02 0620 98.7 67 18 146/88 96 Room Air 07/02 0131 65 132/96 07/01 2146 98.8 73 18 176/100 95 07/02 2023 98.3 83 20 138/81 97 Room Air Intake & Output 07/02 1600 07/02 0800 07/02 0000 07/01 1600 07/01 0800 07/01 0000 Intake Total 660 226 532 7870 Output Total Balance 660 178 216 7877 Intake, IV 600 251 70 4099 Intake, Oral 60 0 480 Patient 159 lb 155 lb Weight Weight Bed scale Reported by Patient Measurement Method Physical Exam: gen- nad card- s1s2 rrr pulm- ctab abd- ttp, melissa w approx 30cc serosang, dressing cdi, quiet bs ext- calves soft nt bl, alps on. Assessment/Plan Assessment/Plan A- POD0 sp lap dank, with appropriate postop pain, stable, with continued elevated Cr (acute on chronic?) P- prn pain meds prn antiemetics i&os clear liquids, ivf am labs- watch h&h, Cr home meds oob, ambulate, alps abx x23hr postop will dw attending Core Measures Venous Thromboembolism VTE Risk Factors Acute Medical Illness No Mechanical VTE Prophylaxis d/t N/A MechProphylax Ordered No VTE Pharm Prophylaxis d/t NA PharmProphylax ordered
[2017-07-02 22:31] VITALS: BP 130/70
[2017-07-03 02:44] VITALS: BP 104/58
[2017-07-03 06:05] VITALS: BP 140/64
--- NOTE | 2017-07-03 08:10 | PN- General Surgery ---
See Addendum Subjective Subjective: POD#1 S/P LAP ANGEL NO MAJOR ISSUES OVERNIGHT DENEIS CP, SOB, NO N+V WITH DIET Objective Vital Signs and I&Os Vital Signs Date Time Temp Pulse Resp B/P B/P Pulse O2 O2 Flow FiO2 Mean Ox Delivery Rate 07/03 0605 97.2 69 20 140/64 93 Room Air 07/03 0244 97.4 69 20 104/58 94 Room Air 07/02 2231 98.0 76 20 130/70 92 07/02 1615 96.0 70 18 124/70 94 Room Air 07/02 1155 97.4 64 18 130/70 96 Room Air Intake & Output 07/03 1600 07/03 0800 07/03 0000 07/02 1600 07/02 0800 07/02 0000 Intake Total 890 875 660 600 555 Output Total 720 1090 Balance 170 -215 660 600 555 Intake, IV 650 525 600 600 75 Intake, Oral 240 350 60 0 480 Output, 70 90 Drainage Output, Urine 650 1000 Patient 159 lb Weight Weight Bed scale Measurement Method Physical Exam: CV: RRR LUNGS: CLEAR ABD: SOFT, FLAT +BS DRSGS DRY BRAXTON: SMALL AMOUNT SEROSANGUINOUS DRAIANGE EXT: WARM, DISTAL CMS INTACT Assessment/Plan Assessment/Plan SURGICAL STABLE PLAN ADVANCE DIET TOLERATED ADJUST DM HOME MEDS OOB/AMBULATE COMPLETE COURSE POST OP ABX D/U AM LABS Core Measures Venous Thromboembolism VTE Risk Factors Acute Medical Illness No Mechanical VTE Prophylaxis d/t N/A MechProphylax Ordered No VTE Pharm Prophylaxis d/t NA PharmProphylax ordered
[2017-07-03 08:41] LABS: ABSOLUTE BASOPHIL COUNT 0 /CUMM (0.0-0.2); ABSOLUTE EOSINOPHIL COUNT 0 /CUMM (0.0-0.7); ABSOLUTE GRANULOCYTE CT 1.8 /CUMM (1.4-6.5); ABSOLUTE LYMPH COUNT 0.7 /CUMM (1.2-3.4); ABSOLUTE MONOCYTE COUNT 0.3 /CUMM (0.10-0.60); BASOPHIL % 0.5 % (0.0-2.0); EOSINOPHIL % 0.3 % (0-5); GRANULOCYTE % 65.2 % (42.2-75.2); HEMATOCRIT 24.5 % (42-52); MEAN CORPUSCULAR HGB 23.2 PG (27.0-31.0); MEAN CORPUSCULAR HGB CONC 31.8 G/DL (33.0-37.0); MEAN CORPUSCULAR VOLUME 72.8 FL (80.0-94.0); MEAN PLATELET VOLUME 9.2 FL (7.4-10.4); PLATELET COUNT 154 /CUMM (130-400); RBC DISTRIBUTION WIDTH 19.1 % (11.5-14.5); RED BLOOD CELL CT 3.37 /CUMM (4.70-6.10); WHITE BLOOD CELL COUNT 2.8 /CUMM (4.8-10.8)
--- NOTE | 2017-07-03 09:29 | PN- Cardiology ---
Subjective Subjective: Patient feels well overall. He only complains of mild incisional pain. Review of Systems: Eyes no blurred or double vision Ears no deafness or ringing Nose and throat no recurrent sinusitis Lungs per history of present illness Heart per history of present illness Abdomen no nausea vomiting incisional pain Musculoskeletal occasional muscle and joint pains Psych no anxiety or depression Neuro without recurrent headache or seizures Endocrine no heat or cold intolerance Objective Vital Signs and I&Os Vital Signs Date Time Temp Pulse Resp B/P B/P Pulse O2 O2 Flow FiO2 Mean Ox Delivery Rate 07/03 0916 140/64 07/03 0605 97.2 69 20 140/64 93 Room Air 07/03 0244 97.4 69 20 104/58 94 Room Air 07/02 2231 98.0 76 20 130/70 92 07/02 1615 96.0 70 18 124/70 94 Room Air 07/02 1155 97.4 64 18 130/70 96 Room Air Intake & Output 07/03 1600 07/03 0800 07/03 0000 07/02 1600 07/02 0800 07/02 0000 Intake Total 890 875 660 600 555 Output Total 720 1090 Balance 170 -215 660 600 555 Intake, IV 650 525 600 600 75 Intake, Oral 240 350 60 0 480 Output, 70 90 Drainage Output, Urine 650 1000 Patient 159 lb Weight Weight Bed scale Measurement Method Physical Exam: Patient is a well-developed well-nourished male appearing in no acute distress HEENT is unremarkable Neck is supple there is no JVD Lungs are clear Heart regular rhythm S1 and S2 are normal no murmurs gallops or rubs Abdomen bowel sounds positive dressings clean dry and intact Extremities without edema Current Medications: Current Medications Sig/Deangelo Start time Last Medication Dose Route Stop Time Status Admin Acetaminophen 650 MG Q6P PRN 07/01 2145 AC 07/02 PO 0814 Ampicillin Sodium/ 3,000 MG Q6H 07/02 1900 DC 07/03 Sulbactam Sodium IV 07/03 0129 0014 Sodium Chloride 100 ML Ampicillin Sodium/ 3,000 MG Q6 07/01 2359 DC 07/02 Sulbactam Sodium IV 1158 Sodium Chloride 100 ML Atorvastatin Calcium 20 MG 1700 07/02 1700 DC PO Dextrose/Sodium 1,000 ML .[id number] 07/01 2144 DC 07/03 Chloride IV 0604 Fentanyl Citrate 100 MCG .STK-MED ONE 07/02 1130 DC IM 07/02 1131 Finasteride 5 MG QPM 07/02 2100 AC 07/02 PO 2023 Gabapentin 300 MG QPM 07/02 2100 AC 07/02 PO 2022 Heparin Sodium 5,000 UNIT Q8 07/01 2200 AC 07/03 (Porcine) SC 0603 Hydrochlorothiazide 25 MG DAILY 07/02 0900 DC 07/02 PO 0806 Insulin Aspart 0 TIDAC 07/03 0830 AC SC Insulin Detemir 15 UNITS DAILY 07/02 0900 AC 07/03 SC 0916 Insulin Human Regular 4 UNITS .STK-MED ONE 07/02 1746 DC SC 07/02 1747 Insulin Human Regular 0 TIDAC/HS 07/02 1700 DC 07/02 SC 2136 Insulin Human Regular 0 Q6 07/01 2359 DC 07/02 SC 1149 Lacosamide 100 MG BID 07/02 0900 AC 07/03 PO 0916 Losartan Potassium 100 MG DAILY 07/02 0900 AC 07/03 PO 0916 Midazolam HCl 2 MG .STK-MED ONE 07/02 1130 DC IM 07/02 1131 Morphine Sulfate 2 MG Q2P PRN 07/01 214 AC IV Ondansetron HCl 4 MG Q6P PRN 07/01 2145 AC IV Oxycodone/ 1 TAB Q4P PRN 07/01 214 AC Acetaminophen PO Oxycodone/ 2 TAB Q4P PRN 07/01 214 AC 07/03 Acetaminophen PO 0603 Patient Medication 1 ED ONE ONE 07/02 1400 DC 07/02 Teaching ED 07/02 1401 1433 Results Last 48 Hrs of Labs/Mics: Laboratory Tests 07/03/17 0730: Anion Gap 10, Estimated GFR 53 L, BUN/Creatinine Ratio 21.5, CBC w Diff NO MAN DIFF REQ, RBC 3.37 L, MCV 72.8 L, MCH 23.2 L, MCHC 31.8 L, RDW 19.1 H, MPV 9.2, Gran % 65.2, Lymphocytes % 23.8, Monocytes % 10.2 H, Eosinophils % 0.3, Basophils % 0.5, Absolute Granulocytes 1.8, Absolute Lymphocytes 0.7 L, Absolute Monocytes 0.3, Absolute Eosinophils 0, Absolute Basophils 0 07/02/17 1530: CBC w Diff NO MAN DIFF REQ, RBC 3.95 L, MCV 73.9 L, MCH 23.2 L, MCHC 31.5 L, RDW 19.0 H, MPV 9.1, Gran % 78.3 H, Lymphocytes % 15.1 L, Monocytes % 3.9, Eosinophils % 2.4, Basophils % 0.3, Absolute Granulocytes 2.3, Absolute Lymphocytes 0.4 L, Absolute Monocytes 0.1, Absolute Eosinophils 0.1, Absolute Basophils 0 07/02/17 0722: Anion Gap 12, Estimated GFR 39 L, BUN/Creatinine Ratio 22.9, CBC w Diff NO MAN DIFF REQ, RBC 3.61 L, MCV 73.5 L, MCH 23.3 L, MCHC 31.7 L, RDW 18.9 H, MPV 9.5, Gran % 56.1, Lymphocytes % 26.7, Monocytes % 10.0 H, Eosinophils % 6.4 H, Basophils % 0.8, Absolute Granulocytes 1.1 L, Absolute Lymphocytes 0.5 L, Absolute Monocytes 0.2, Absolute Eosinophils 0.1, Absolute Basophils 0 07/01/17 1720: Troponin I < 0.01 07/01/17 1407: Anion Gap 13, Estimated GFR 42 L, BUN/Creatinine Ratio 23.8, Glucose 93, Calcium 9.7, Total Bilirubin 0.3, AST 29, ALT 29, Alkaline Phosphatase 47, Troponin I < 0.01, Total Protein 6.6, Albumin 4.1, Globulin 2.5, Albumin/ Globulin Ratio 1.6, Lipase 162, CBC w Diff NO MAN DIFF REQ, RBC 4.45 L, MCV 73.8 L, MCH 23.1 L, MCHC 31.3 L, RDW 18.7 H, MPV 9.1, Gran % 74.4, Lymphocytes % 15.6 L, Monocytes % 6.8, Eosinophils % 2.7, Basophils % 0.5, Absolute Granulocytes 3.7, Absolute Lymphocytes 0.8 L, Absolute Monocytes 0.3, Absolute Eosinophils 0.1, Absolute Basophils 0, Acetone Level NEGATIVE 07/01/17 1348: Urine Color Cancelled, Urine Clarity Cancelled, Urine pH Cancelled, Ur Specific [place] Cancelled, Urine Protein Cancelled, Urine Ketones Cancelled, Urine Nitrite Cancelled, Urine Bilirubin Cancelled, Urine Urobilinogen Cancelled, Ur Leukocyte Esterase Cancelled, Ur Microscopic Cancelled, Urine Hemoglobin Cancelled, Urine Glucose Cancelled Assessment/Plan Assessment/Plan 1. Acute cholecystitis postop cholecystectomy 2. History of mild aortic dilatation 3. History of a mildly abnormal nuclear stress test 2015 with a small area of possible ischemia of the apex managed medically 4. History of diabetes/hypertension/hyperlipidemia 5. History of seizure disorder 6. History of chronic renal insufficiency. Recommendations 1. Would resume aspirin and statin when cleared by surgery 2. Ambulate 3. Patient is stable from a cardiac standpoint. Will follow as needed thank you Continue telemetry? No
--- NOTE | 2017-07-03 11:51 | PN- Medicine Consult ---
Liz Moseley 07/03/17 1151: Assessment/PlanMedical Consult Assessment/Plan Assessment: This is a 81 YO M w/PMH significant for seizure, HTN, steatohepatitis/early cirrhosis, cholelithiasis, hyperlipidemia, BPH who was admitted to the surgical service for acute cholecystitis. His is status post laparoscopic cholecystectomy POD 1. Problem list: #Acute cholecystitis status post laparoscopic cholecystectomy POD 1. #Leukopenia #Anemia #Diabetes #Hypertension, hyperlipidemia, BPH #Seizure #Elevated creatinine;close to baseline #Remote thrombocytopenia (123 in May 2016, 68 in June 2012) Plan: Recommendations: -May benefit from hematology consult as an outpatiet -follow blood cultures -Decision to resume aspirin and statin per surgery. -Would hold metformin, and hydrochlorothiazide preop. -C/w with other medications including Vimpat, insulin, lisinopril. -DVT prophylaxis at all times. -Consider GI prophylaxis. The case was discussed with attending Dr. Miller, please refer to his addendum for further recommendations. Problem List: 1. Acute cholecystitis Subjective Subjective: The patient was seen and examined. Status post laparoscopic cholecystectomy. POD 1. Reports mild pain at the site of his surgery. He denies any headache, dizziness, lightheadedness, chest pain, shortness of breath, urinary symptoms. VSS. No evidence reported. Review of Systems Constitutional: Denies: see HPI. Objective Last 24 Hrs of Vital Signs/I&O Date Time Temp Pulse Resp B/P B/P Pulse O2 O2 Flow FiO2 Mean Ox Delivery Rate 07/04 0703 97.0 70 18 158/80 96 Room Air 07/03 2159 98.2 67 20 150/70 93 07/03 1604 96.5 72 20 140/60 94 07/03 1200 98.9 71 18 142/62 97 Room Air 07/03 0916 140/64 Physical Exam General Appearance: no apparent distress Other Physical Findings: Head: atraumatic, normal appearance Eyes: Bilateral: normal appearance, PERRL, EOMI. Ears, Nose, Throat: normal pharynx, normal ENT inspection, hearing grossly normal Neck: normal inspection, supple Respiratory: normal breath sounds, chest non-tender, no respiratory distress Cardiovascular: regular rate/rhythm, no murmur Gastrointestinal: soft, right drain w/sersanguineous drainage noted. Tender at the site of incision. 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 Results Last 24 Hrs Lab/[place] Results: . Nai Miller 07/03/17 1555: Attending MD Review Statement Attending Sign Off Attending Cosign Statement: I have: examined this patient, reviewed [facility] EMR data, discussd w/resident/PA/ [employer], discussed mgmt plan w/dilan, discussed mgmt plan w/pt, agreed w/resident/PA/ [employer]. Other Findings: d/w pt and surgical service Dr kemp the care plan. pt s/p cholecystecotomy for acute cholecystitis. passing gas . planned for possible dc tomorrow by surgica service. agree with the above assessment and plan.
[2017-07-03 12:00] VITALS: BP 142/62
[2017-07-03 16:04] VITALS: BP 140/60
[2017-07-03 21:59] VITALS: BP 150/70
[2017-07-04 07:03] VITALS: BP 158/80
--- NOTE | 2017-07-04 07:32 | PN- General Surgery ---
Subjective Subjective: Patient reports incisional pain, which is controlled with Percoet. He reports tolerating a diet without any nausea or vomiting. Ambulated yesterday morning. Passing flatus, denies moving his bowels. Denies chest pain, sob, fever or chills, dizziness or lightheadedness. Offers no other complaints. Objective Vital Signs and I&Os Vital Signs Date Time Temp Pulse Resp B/P B/P Pulse O2 O2 Flow FiO2 Mean Ox Delivery Rate 07/04 0703 97.0 70 18 158/80 96 Room Air 07/03 2159 98.2 67 20 150/70 93 07/03 1604 96.5 72 20 140/60 94 07/03 1200 98.9 71 18 142/62 97 Room Air 07/03 0916 140/64 Intake & Output 07/04 0807/04 0000 07/03 1600 07/03 0807/03 0000 07/02 1600 Intake Total 120 180 890 875 660 Output Total 855 855 190 609 0065 Balance -735 -675 -640 170 -215 660 Intake, IV 650 525 600 Intake, Oral 120 180 240 350 60 Output, 80 105 40 70 90 Drainage Output, Urine 775 750 782 267 4389 Physical Exam: Gen - nad Cardiac - S1S2 noted Lungs - CTAB Abd - soft, hypoactive bs, dressing c/d/i, steri strips in place, no drainage, right melissa drain with serosanguineous drainage, 80 cc last shift, and 25 cc currently, appropriately tender jose-incisionally no rebound or guarding Ext - no edema or calf tenderness Current Medications: Current Medications Sig/Deangelo Start time Last Medication Dose Route Stop Time Status Admin Acetaminophen 650 MG Q6P PRN 07/01 2144 AC 07/02 PO 0814 Dextrose/Sodium 1,000 ML .[id number] 07/01 2144 DC 07/03 Chloride IV 0604 Finasteride 5 MG QPM 07/02 2099 AC 07/03 PO 1953 Gabapentin 300 MG QPM 07/02 2099 AC 07/03 PO 1953 Heparin Sodium 5,000 UNIT Q8 07/01 2199 AC 07/04 (Porcine) SC 0527 Insulin Aspart 0 TIDAC 07/03 0830 AC 07/03 SC 1803 Insulin Detemir 15 UNITS DAILY 07/02 0900 AC 07/03 SC 0916 Insulin Human Regular 0 TIDAC/HS 07/02 1700 DC 07/02 SC 213 Lacosamide 100 MG BID 07/02 899 AC 07/03 PO 2022 Losartan Potassium 100 MG DAILY 07/02 09 AC 07/03 PO 09 Morphine Sulfate 2 MG Q2P PRN 07/01 2144 AC 07/03 IV 1546 Ondansetron HCl 4 MG Q6P PRN 07/01 2144 AC IV Oxycodone/ 1 TAB Q4P PRN 07/01 2144 AC 07/03 Acetaminophen PO 195 Oxycodone/ 2 TAB Q4P PRN 07/01 2144 AC 07/03 Acetaminophen PO 1052 Patient Medication 1 ED ONE ONE 07/03 1699 DC Teaching ED 07/03 1700 Results Last 48 Hours of Labs: Laboratory Tests 07/04 07/03 0650 0730 Chemistry Sodium (137 - 145 mmol/L) Pending 140 Potassium (3.5 - 5.1 mmol/L) Pending 4.2 Chloride (98 - 107 mmol/L) Pending 107 Carbon Dioxide (22 - 30 mmol/L) Pending 23 Anion Gap (5 - 16) Pending 10 BUN (9 - 20 mg/dL) Pending 28 H Creatinine (0.7 - 1.2 mg/dL) Pending 1.3 H Estimated GFR (>60 ml/min) 53 L BUN/Creatinine Ratio (7 - 25 %) Pending 21.5 Hematology CBC w Diff Pending NO MAN DIFF REQ WBC (4.8 - 10.8 /CUMM) Pending 2.8 L RBC (4.70 - 6.10 /CUMM) Pending 3.37 L Hgb (14.0 - 18.0 G/DL) Pending 7.8 L Hct (42 - 52 %) Pending 24.5 L MCV (80.0 - 94.0 FL) Pending 72.8 L MCH (27.0 - 31.0 PG) Pending 23.2 L MCHC (33.0 - 37.0 G/DL) Pending 31.8 L RDW (11.5 - 14.5 %) Pending 19.1 H Plt Count (130 - 400 /CUMM) Pending 154 MPV (7.4 - 10.4 FL) Pending 9.2 Gran % (42.2 - 75.2 %) 65.2 Lymphocytes % (20.5 - 51.1 %) 23.8 Monocytes % (1.7 - 9.3 %) 10.2 H Eosinophils % (0 - 5 %) 0.3 Basophils % (0.0 - 2.0 %) 0.5 Absolute Granulocytes (1.4 - 6.5 /CUMM) 1.8 Absolute Lymphocytes (1.2 - 3.4 /CUMM) 0.7 L Absolute Monocytes (0.10 - 0.60 /CUMM) 0.3 Absolute Eosinophils (0.0 - 0.7 /CUMM) 0 Absolute Basophils (0.0 - 0.2 /CUMM) 0 07/02 1530 Hematology CBC w Diff NO MAN DIFF REQ WBC (4.8 - 10.8 /CUMM) 2.9 L RBC (4.70 - 6.10 /CUMM) 3.95 L Hgb (14.0 - 18.0 G/DL) 9.2 L Hct (42 - 52 %) 29.2 L MCV (80.0 - 94.0 FL) 73.9 L MCH (27.0 - 31.0 PG) 23.2 L MCHC (33.0 - 37.0 G/DL) 31.5 L RDW (11.5 - 14.5 %) 19.0 H Plt Count (130 - 400 /CUMM) 160 MPV (7.4 - 10.4 FL) 9.1 Gran % (42.2 - 75.2 %) 78.3 H Lymphocytes % (20.5 - 51.1 %) 15.1 L Monocytes % (1.7 - 9.3 %) 3.9 Eosinophils % (0 - 5 %) 2.4 Basophils % (0.0 - 2.0 %) 0.3 Absolute Granulocytes (1.4 - 6.5 /CUMM) 2.3 Absolute Lymphocytes (1.2 - 3.4 /CUMM) 0.4 L Absolute Monocytes (0.10 - 0.60 /CUMM) 0.1 Absolute Eosinophils (0.0 - 0.7 /CUMM) 0.1 Absolute Basophils (0.0 - 0.2 /CUMM) 0 Assessment/Plan Assessment/Plan 81 M POD 2 s/p lap dank with melissa due to acute cholecystitis with lennox, improving and acute blood loss anemia, currently asymptomatic Cont ada diet Pain regimen prn Remove MELISSA today Cont ISS DVT px - hsq, alps Bowel regimen on board F/u labs Encourage IS, ambulation Will d/w Dr. Mello Core Measures Venous Thromboembolism VTE Risk Factors Acute Medical Illness No Mechanical VTE Prophylaxis d/t N/A MechProphylax Ordered No VTE Pharm Prophylaxis d/t NA PharmProphylax ordered
[2017-07-04] MEDS ORDERED: PERCOCET 5-3251 EACH PO (07:48)
[2017-07-04 07:55] VITALS: BP 158/80
[2017-07-04 08:51] LABS: ABSOLUTE BASOPHIL COUNT 0 /CUMM (0.0-0.2); ABSOLUTE EOSINOPHIL COUNT 0.1 /CUMM (0.0-0.7); ABSOLUTE GRANULOCYTE CT 1.3 /CUMM (1.4-6.5); ABSOLUTE LYMPH COUNT 0.8 /CUMM (1.2-3.4); ABSOLUTE MONOCYTE COUNT 0.2 /CUMM (0.10-0.60); BASOPHIL % 0.6 % (0.0-2.0); EOSINOPHIL % 4.4 % (0-5); GRANULOCYTE % 55.2 % (42.2-75.2); HEMATOCRIT 26.3 % (42-52); MEAN CORPUSCULAR HGB CONC 31.5 G/DL (33.0-37.0); MEAN CORPUSCULAR VOLUME 73.2 FL (80.0-94.0); MEAN PLATELET VOLUME 9.3 FL (7.4-10.4); PLATELET COUNT 149 /CUMM (130-400); RBC DISTRIBUTION WIDTH 18.7 % (11.5-14.5); RED BLOOD CELL CT 3.59 /CUMM (4.70-6.10); WHITE BLOOD CELL COUNT 2.4 /CUMM (4.8-10.8)
--- NOTE | 2017-07-04 15:26 | Surgical Discharge Summary ---
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 Home Who Do You Live With? Spouse Services at Home: None What is Your Primary Language? Lithuanian ETOH Use: denies use Review of Systems: see preop hp Hospital Course Course Attending Physician: Ronnie Mello MD Primary Care Physician: Reji Orozco MD Hospital Course: Patient admitted to surgical service for acute cholecystitis. Preop cards eval obtained and patient taken to OR for laparoscopic cholecystectomy for severe acute cholecystitis. Patient recovered well. He was kept for observation of acute on chronic anemia. He was stable on POD 2 and sent home. Allergies: Coded Allergies: NO KNOWN ALLERGIES (04/21/14) Significant Procedures: Laparoscopic cholecystectomy Disposition Summary Disposition Principal Diagnosis: Acute cholecystitis Additional Diagnosis: Acute on chronic anemia Cirrhosis Discharge Disposition: home or self care Discharge Instructions General Discharge Information Code Status: Full Code Patient's Diet: regular Patient's Activity: no lifting. Follow-Up Instructions/Appts: 2 weeks Medications at Discharge Discharge Medications: Continue taking these medications: Metformin HCl (Metformin HCl) 500 MG TABLET 1 Tablet ORAL TWICE DAILY Simvastatin (Simvastatin*) 40 MG TABLET 1 Tablet ORAL Every night Qty = 90 Calcium Carbonate/Vitamin D3 (Calcium 500 + D Tablet) 500 MG-400 TABLET 1 Tablet ORAL Every Morning Fenofibrate Nanocrystallized (Fenofibrate) 145 MG TABLET 1 Tablet ORAL DAILY Finasteride (Finasteride) 5 MG TABLET 1 Tablet ORAL Every night Gabapentin (Gabapentin) 300 MG CAPSULE 1 Capsule ORAL Every night Aspirin (Ecotrin*) 81 MG TABLET.DR 1 Tablet ORAL DAILY Losartan/Hydrochlorothiazide (Losartan-Hctz 100-25 MG Tab) 100 MG-25 MG TABLET 1 Tablet ORAL Every night Qty = 90 Comments: Last Taken: 07/04/17 Time: 0800 [place]-3/Dha/Epa/Fish Oil (Fish Oil 1,000 MG Softgel) 250 MG-500 MG-1,000 MG CAPSULE 1 Capsule ORAL TWICE DAILY Insulin Detemir (Levemir Flextouch) 100 UNIT/ML (3 ML) INSULN.PEN 30 Units Inject into fatty tissue Every Morning Qty = 15 Lacosamide (Vimpat) 100 MG TABLET 1 Tablet ORAL TWICE DAILY Qty = 60 Comments: Last Taken: 07/04/17 Time: 0800 Insulin Lispro (Humalog Kwikpen U-100) (Unknown Strength) INSULN.PEN Unknown Dose Inject into fatty tissue BEFORE MEALS AND AT BEDTIME Sennosides (Senna) 8.6 MG TABLET 1 Tablet ORAL DAILY Start taking the following new medications: Oxycodone HCl/Acetaminophen (Percocet 5-325 MG Tablet) 5 MG-325 MG TABLET 1-2 Tablet ORAL EVERY 4-6 HOURS as needed for PAIN Qty = 30 No Refills Copies To: Ernesto PAUL,Rjei Riley; Keke PAUL,Rayray Payne
== END 2017-07-04 10:42 | DRG 418 ==
LOC: ERH 13:09 → ERHI 18:07 → 2NA 18:07 → ENRESERV 20:03 → ENTRNSPT 20:57 → 2NA 20:59 → EDTRNSPTSTS 21:15 → 2NA 21:31 → CMPTRNSPT 21:38 → 2NA 07-02 08:55 → ENTRNSPT 07-04 10:37 → EDTRNSPTSTS 07-04 10:39 → EDTRNSPT 07-04 10:39 → 2NA 07-04 10:42 → CMPTRNSPT 07-04 11:27
PROVIDERS: Internal Medicine; Physician Assistant; Physician Assistant Medical; Physician Assistant Surgical; Surgery
PROC: 3E0T3BZ Introduction of Anesthetic Agent into Peripheral Nerves and Plexi, Percutaneous Approach (ICD-10-PCS; principal; 2017-07-02)
PROC: 0FT44ZZ Resection of Gallbladder, Percutaneous Endoscopic Approach (ICD-10-PCS; principal; 2017-07-02)
DX: K81.0 Acute cholecystitis (principal); I13.0 Hypertensive heart and chronic kidney disease with heart failure and stage 1 through stage 4 chronic kidney disease, or unspecified chronic kidney disease; N17.9 Acute kidney failure, unspecified; E11.22 Type 2 diabetes mellitus with diabetic chronic kidney disease; E11.51 Type 2 diabetes mellitus with diabetic peripheral angiopathy without gangrene; D70.9 Neutropenia, unspecified; I50.32 Chronic diastolic (congestive) heart failure; D62 Acute posthemorrhagic anemia; E78.5 Hyperlipidemia, unspecified; D64.9 Anemia, unspecified; N18.9 Chronic kidney disease, unspecified; Z79.82 Long term (current) use of aspirin; Z79.4 Long term (current) use of insulin; N40.0 Benign prostatic hyperplasia without lower urinary tract symptoms; K75.81 Nonalcoholic steatohepatitis (NASH); G40.909 Epilepsy, unspecified, not intractable, without status epilepticus; I77.819 Aortic ectasia, unspecified site; K21.9 Gastro-esophageal reflux disease without esophagitis
CPT/HCPCS: 2NASP; 6030; 36592; 74176; 82436; 87040; 93005; 93010; 96374; 96375; C9399; G0378; J1644; J1815; J1885; J2405; J3490; J7042